=== PATIENT | female | born 1935 | race Caucasian/White ===

== ENCOUNTER 2017-02-24 19:08 | Inpatient (IN) | payer MEDICARE ==
--- NOTE | 2017-02-24 20:11 | ERPHSYRPT ---
- History of Present Illness Time Seen by Provider: 02/24/17 19:57 Source: patient, family (friend) Patient Subjective Stated Complaint: states a little before 1830 (when friend rec'd call) she stated having issues making a phone call. No other sick symptoms , AAO x 4 on assessment Triage Nursing Assessment: AAO x 4 on assessment, follows commands, just states she was confused and unsure how to make a phone call. Has hx of episode similar to this before but no diagnosis made at the time Physician History: CC: confusion Hx: 81 y/o patient lives at home. She had an episode of memory loss tonite around 5:30 PM. She could not remember her friend's phone numbers. She accidently called one who then checked cinthia her. Friend found her at 6:30PM with some slurring of speech, memory loss, mildly confused. She has hx of TIA. No blood thinners. No headache or chest pains today. No fall or injury. She had prior admission for memory loss acutely remotely. She is a pt of Dr Pascual Garcia. Timing/Duration: today Severity: moderate Allergies/Adverse Reactions: adhesive Allergy (Verified 08/22/14 18:11) meperidine HCl [From Demerol] Allergy (Verified 08/22/14 18:11) morphine Allergy (Verified 08/22/14 18:11) Penicillins Allergy (Verified 08/22/14 18:11) Sulfa (Sulfonamide Antibiotics) Allergy (Verified 08/22/14 18:11) Home Medications: Cholecalciferol (Vitamin D3) [Vitamin D] 2,000 unit PO DAILY 08/22/14 [ History] Famotidine/Calcium Carb/Mag [Pepcid Complete Tablet Chew] 1 each PO DAILY PRN PRN 08/22/14 [History] HydrALAzine HCL 25 MG TAB [Apresoline 25 MG TABLET] 25 mg PO BID 08/22/14 [History] Latanoprost [Xalatan] 2.5 ml OP HS 08/22/14 [History] Levothyroxine Sodium 25 Mcg [Synthroid 25 Mcg] 25 mcg PO DAILY 08/22/14 [ History] Meloxicam 7.5 mg [Mobic 7.5 MG] 7.5 mg PO DAILY 08/22/14 [History] Metformin HCl 500 mg [Glucophage 500 MG] 1,000 mg PO BID 08/22/14 [History ] Metoprolol Succinate 50 mg [Toprol Xl 50 MG] 50 mg PO BID 08/22/14 [ History] Quinapril HCl [Accupril] 40 mg PO DAILY 08/22/14 [History] Tolterodine Tartrate [Detrol LA] 4 mg PO BID 08/22/14 [History] Triamterene/Hydrochlorothiazid [Triamterene-Hctz 37.5-25 mg Tb] 1 each PO DAILY 08/22/14 [History] Hx Tetanus, Diphtheria Vaccination/Date Given: Yes Hx Influenza Vaccination/Date Given: Yes Hx Pneumococcal Vaccination/Date Given: Yes Immunizations Up to Date: Yes - Review of Systems Constitutional: No Fever, No Chills, No Malaise Eyes: No Vision Changes Respiratory: No Cough, No Dyspnea Cardiac: No Chest Pain Abdominal/Gastrointestinal: No Abdominal Pain, No Nausea, No Vomiting Musculoskeletal: No Back Pain Skin: No Rash Neurological: Speech Changes, Other (memory loss), No Dizziness, No Focal Weakness, No Headache, No Parasthesia All Other Systems: Reviewed and Negative - Past Medical History Pertinent Past Medical History: Yes Neurological History: Peripheral Neuropathy, TIA ENT History: Cataracts, Macular Degeneration Cardiac History: High Cholesterol, Hypertension, Other Respiratory History: COPD, Sleep Apnea Endocrine Medical History: Diabetes Type II, Hypothyroidism, Other Musculoskeletal History: Osteoarthritis GI Medical History: Diverticulitis History: Renal Disease, Other Psycho-Social History: No Pertinent History Female Reproductive Disorders: Breast Cancer Other Medical History: L KNEE ARTHROSCOPIC SURGERY, HEART CATH, BREAST CA. Sleep Apnea. TIA - Past Surgical History Past Surgical History: Yes Neuro Surgical History: No Pertinent History Cardiac: Cardiac Catheterization Respiratory: No Pertinent History Gastrointestinal: No Pertinent History - Social History Smoking Status: Former smoker How long have you smoked: 49 Exposure to second hand smoke: No Drug Use: none Patient Lives Alone: Yes (here with a friend) - Female History Hx Last Menstrual Period: post menopausal Hx Now: No - Nursing Vital Signs Nursing Vital Signs: Initial Vital Signs Temperature 97.7 F 02/24/17 19:25 Pulse Rate 82 02/24/17 19:25 Respiratory Rate 20 12/25/17 19:25 Blood Pressure 221/102 02/24/17 19:25 O2 Sat by Pulse Oximetry 92 L 02/24/17 19:25 Pain Scale Pain Intensity 0 - Physical Exam General Appearance: alert, other (keenly alert, answers all questions, conversant with her friend) Eye Exam: PERRL/EOMI Ears, Nose, Throat Exam: normal ENT inspection, moist mucous membranes, other ( tongue midline) Neck Exam: normal inspection Respiratory Exam: normal breath sounds, lungs clear Cardiovascular Exam: regular rate/rhythm Gastrointestinal/Abdomen Exam: soft, No tenderness, No distention Extremity Exam: normal inspection, normal range of motion, No pedal edema Neurologic Exam: alert, oriented x 3, cooperative, floor cashier II-XII nml as tested, sensation nml, other (no facial droop, no pronatory drift, knows her phone numbers, oriented X 3), No motor deficits Skin Exam: warm, dry, No rash SpO2 Interpretation: borderline oxygenation SpO2: 92 Oxygen Delivery: Room Air - Course Nursing assessment & vital signs reviewed: Yes EKG Interpreted by Me: RATE (77), Sinus Rhythm, NORMAL AXIS, NORMAL INTERVALS ( [id number]), Non-specific ST Changes - Radiology Exams cxr X-ray Interpretation: Interpreted by me (mild congestion, borderline heart size , no acute, calcified aorta) - CT Exams brain CT Interpretation: Negative, Tele-radiologist Report Ordered Tests: Active Orders 24 hr Category Date Time Status Remedial Teacher STAT Care 02/24/17 20:05 Active EKG-ER Only STAT Care 02/24/17 20:05 Active IV Insertion STAT Care 02/24/17 20:05 Active NPO (ED) STAT Care 02/24/17 20:05 Active Pulse Oximetry (ED) STAT Care 02/24/17 20:05 Active CHEST 1 VIEW (PORTABLE) Stat Exams 02/24/17 20:05 Taken HEAD WITHOUT CONTRAST [CT] Stat Exams 02/24/17 20:05 Taken BLOOD CULTURE Stat Lab 02/24/17 21:35 Ordered CBC W DIFF Stat Lab 02/24/17 20:51 Completed CMP Stat Lab 02/24/17 20:51 Completed CULTURE,URINE Stat Lab 02/24/17 21:06 Received Lactic Acid Stat Lab 02/24/17 20:44 Results Manual Differential NC Stat Lab 02/24/17 20:51 Completed PROTIME WITH INR Stat Lab 02/24/17 20:51 Completed PTT Stat Lab 02/24/17 20:51 Completed UA W/ MICROSCOPIC Stat Lab 02/24/17 21:06 Completed VENOUS BLOOD GAS Stat Lab 02/24/17 20:44 Completed Medication Summary Generic Name Dose Route Start Last Admin Trade Name Kennedy PRN Reason Stop Dose Admin Ceftriaxone Sodium/Dextrose 1 g in 50 mls @ 100 mls/hr 02/24/17 21:32 Rocephin 1 Gm-D5w 50 Ml Bag IV 02/24/17 22:01 STAT STA Sodium Chloride 1,000 mls @ 100 mls/hr 02/24/17 21:45 Sodium Chloride 0.9% 1000 Ml IV 03/26/17 21:44 .Q10H ISH Lab/Rad Data: Laboratory Result Diagrams 02/24/17 20:51 02/24/17 20:51 Laboratory Results 02/24/17 02/24/17 02/24/17 Range/Units 21:06 20:51 20:51 WBC (4.0-10.5) K/mm3 RBC (4.1-5.4) M/mm3 Hgb (12.0-16.0) gm/dl Hct (35-47) % MCV (78-100) fl MCH (26-32) pg MCHC (32-36) g/dl RDW (11.5-14.0) % Plt Count (150-450) K/mm3 MPV (6-9.5) fl INR 0.97 (0.8-3.0) APTT 31.1 (25.3-37.0) SECONDS VBG pH (7.32-7.42) VBG pCO2 at Pat Temp (42-55) mm/Hg VBG pO2 at Pat Temp (25-40) mm/Hg VBG HCO3 (22-28) meq/L VBG O2 Sat (Marlene) (95-100) VBG Base Excess (-2.0-2.0) VBG Hemoglobin VBG Carboxyhemoglobin (0.0-6.9) % T HGB POC Potassium (3.5-5.1) Sodium 139 (136-145) mEq/L Potassium 3.7 (3.5-5.1) mEq/L Chloride 103 (98-107) mEq/L Carbon Dioxide 25.9 (21-32) mEq/L Anion Gap 14.2 (5-15) MEQ/L BUN 48 H (9-20) mg/dL Creatinine 1.71 H (0.55-1.30) mg/dl Estimated GFR 30 ML/MIN Glucose 224 H (70-110) MG/DL Lactic Acid (0.4-2.0) Calcium 9.2 (8.5-10.1) mg/dL Total Bilirubin 0.70 (0.2-1.0) mg/dL AST 22 (15-37) U/L ALT 18 (12-78) U/L Alkaline Phosphatase 79 (46-116) U/L Serum Total Protein 6.8 (6.4-8.2) gm/dL Albumin 3.2 L (3.4-5.0) g/dL Ur Collection Type VOID Urine Color YELLOW (YELLOW) Urine Appearance SLIGHTLY CLOUDY (CLEAR) Urine pH 5.0 (5-6) Ur Specific [place] 1.015 (1.005-1.025) Urine Protein TRACE (Negative) Urine Ketones NEGATIVE (NEGATIVE) Urine Blood 50 (0-5) Александр/ul Urine Nitrite POSITIVE (NEGATIVE) Urine Bilirubin NEGATIVE (NEGATIVE) Urine Urobilinogen NORMAL (0-1) mg/dL Ur Leukocyte Esterase 1+ (NEGATIVE) Urine Microscopic RBC 2-5 (0-2) /HPF Urine Microscopic WBC 25-50 (0-5) /HPF Ur Epithelial Cells FEW (FEW) /HPF Urine Bacteria MANY (NEGATIVE) /HPF Urine Culture Reflexed YES (NO) Urine Glucose 100 (NEGATIVE) mg/dL Specimen Received 02/24/17210402/24/17 02/24/17 02/24/17 Range/Units 20:51 20:44 20:44 WBC 10.2 (4.0-10.5) K/mm3 RBC 4.23 (4.1-5.4) M/mm3 Hgb 12.0 (12.0-16.0) gm/dl Hct 37.8 (35-47) % MCV 89.4 (78-100) fl MCH 28.4 (26-32) pg MCHC 31.7 L (32-36) g/dl RDW 14.6 H (11.5-14.0) % Plt Count 218 (150-450) K/mm3 MPV 10.7 H (6-9.5) fl INR (0.8-3.0) APTT (25.3-37.0) SECONDS VBG pH 7.40 (7.32-7.42) VBG pCO2 at Pat Temp 43 (42-55) mm/Hg VBG pO2 at Pat Temp 52 H (25-40) mm/Hg VBG HCO3 26.6 (22-28) meq/L VBG O2 Sat (Marlene) 90.8 L (95-100) VBG Base Excess 1.5 (-2.0-2.0) VBG Hemoglobin 12.4 VBG Carboxyhemoglobin 1.7 (0.0-6.9) % T HGB POC Potassium 3.7 (3.5-5.1) Sodium (136-145) mEq/L Potassium (3.5-5.1) mEq/L Chloride (98-107) mEq/L Carbon Dioxide (21-32) mEq/L Anion Gap (5-15) MEQ/L BUN (9-20) mg/dL Creatinine (0.55-1.30) mg/dl Estimated GFR ML/MIN Glucose (70-110) MG/DL Lactic Acid 2.1 H (0.4-2.0) Calcium (8.5-10.1) mg/dL Total Bilirubin (0.2-1.0) mg/dL AST (15-37) U/L ALT (12-78) U/L Alkaline Phosphatase (46-116) U/L Serum Total Protein (6.4-8.2) gm/dL Albumin (3.4-5.0) g/dL Ur Collection Type Urine Color (YELLOW) Urine Appearance (CLEAR) Urine pH (5-6) Ur Specific [place] (1.005-1.025) Urine Protein (Negative) Urine Ketones (NEGATIVE) Urine Blood (0-5) Александр/ul Urine Nitrite (NEGATIVE) Urine Bilirubin (NEGATIVE) Urine Urobilinogen (0-1) mg/dL Ur Leukocyte Esterase (NEGATIVE) Urine Microscopic RBC (0-2) /HPF Urine Microscopic WBC (0-5) /HPF Ur Epithelial Cells (FEW) /HPF Urine Bacteria (NEGATIVE) /HPF Urine Culture Reflexed (NO) Urine Glucose (NEGATIVE) mg/dL Specimen Received - Progress Progress Note: 12/25/17 21:38 She has UTI. Allergic to PCN which caused hives but has taken keflex in the past without problems. She appears azotemic with elevated BUN and creat. She has UTI. No focal weakness so not a TPA candidate. CAlled Dr Brooklynn Garcia for osbervation. Discussed with : Mack Will see patient in: hospital (observation) Counseled pt/family regarding: lab results, diagnosis, need for follow-up, rad results - Departure Time of Disposition: 21:40 Departure Disposition: Observation Clinical Impression: TIA (transient ischemic attack), UTI (lower urinary tract infection), Dehydration Condition: Stable Critical Care Time: No Referrals: AQUILINO GARCIA [Primary Care Provider] -
[2017-02-24 20:49] LABS: Lactic Acid 2.1 (0.4-2.0)
[2017-02-24 20:52] LABS: VBG BASE EXCESS 1.5 (-2.0-2.0); VBG CARBOXYHEMOGLOBIN 1.7 % T HGB (0.0-6.9); VBG HCO3- 26.6 meq/L (22-28); VBG HEMOGLOBIN 12.4; VBG O2 SATURATION 90.8 (95-100); VBG POTASSIUM 3.7 (3.5-5.1); VBG pH 7.4 (7.32-7.42)
[2017-02-24 20:54] LABS: Granulocyte Absolute (ANC) 7.27 (1.4-6.9); Hematocrit 37.8 % (35-47); Mean Cell Volume 89.4 fl (78-100); Mean Corpuscular Hemoglobin 28.4 pg (26-32); Mean Corpuscular Hgb Concent. 31.7 g/dl (32-36); Mean Platelet Volume 10.7 fl (6-9.5); Platelet Count 218 K/mm3 (150-450); Red Blood Count 4.23 M/mm3 (4.1-5.4); Red Cell Distribution Width 14.6 % (11.5-14.0); White Blood Count 10.2 K/mm3 (4.0-10.5)
[2017-02-24 21:16] LABS: INR 0.97 (0.8-3.0)
[2017-02-24 21:19] LABS: PTT 31.1 SECONDS (25.3-37.0)
[2017-02-24 21:24] LABS: ALBUMIN 3.2 g/dL (3.4-5.0); ANION GAP 14.2 MEQ/L (5-15); BILIRUBIN,TOTAL 0.7 mg/dL (0.2-1.0); Calcium 9.2 mg/dL (8.5-10.1); Carbon Dioxide 25.9 mEq/L (21-32); Creatinine 1 1.71 mg/dl (0.55-1.30); Potassium 3.7 mEq/L (3.5-5.1); Total Protein 6.8 gm/dL (6.4-8.2)
[2017-02-24 21:24] LABS: Appearance SLIGHTLY CLOUDY (CLEAR); Bilirubin NEGATIVE (NEGATIVE); Blood 50 Ery/ul (0-5); Glucose 100 mg/dL (NEGATIVE); Ketones NEGATIVE (NEGATIVE); Leukocyte Esterase 1+ (NEGATIVE); Nitrite POSITIVE (NEGATIVE); Protein,Urine Dip TRACE (Negative); Specific Gravity 1.015 (1.005-1.025); Urobilinogen NORMAL mg/dL (0-1)
[2017-02-24 21:25] LABS: Bacteria MANY /HPF (NEGATIVE); Epithelial Cells FEW /HPF (FEW); WBC 25-50 /HPF (0-5)
[2017-02-24] MEDS ORDERED: ROCEPHIN 1 Gm-D5w 50 ml Bag** 1 G/50 ML IVPB IV STA (21:32)
[2017-02-24] MEDS ORDERED: ROCEPHIN 1 Gm-D5w 50 ml Bag** 1 G/50 ML IVPB IV ONE (21:44)
[2017-02-24] MEDS ORDERED: Sodium Chloride 0.9% 1000 ML 1,000 ML IV SCH (21:45)
[2017-02-24] MEDS ORDERED: Sodium Chloride 0.9% 1000 ML 1,000 ML ONE (21:51)
[2017-02-24 22:00] LABS: ATYPICAL LYMPHS 2 %; BAND 4 % (0.0-2.0); Lymphocytes 16 % (24-44); Monocyte 2 % (0.0-12.0); Neutrophils 76 % (36.0-66.0); Platelet Estimate NORMAL (NORMAL); Total Cells Counted 100
[2017-02-24] MEDS ORDERED: NovoLOG Insulin SQ PRN (22:28)
[2017-02-25] MEDS ORDERED: Ditropan XL 5 MG PO SCH (00:30)
[2017-02-25] MEDS ORDERED: Apresoline 25 MG TABLET PO ONE (00:30)
[2017-02-25] MEDS: Glucophage 500 MG PO SCH ×3 (00:33→18:12)
[2017-02-25] MEDS: Xalatan OP SCH ×2 (01:23→21:59)
[2017-02-25 04:48] LABS: ANION GAP 12.5 MEQ/L (5-15); Calcium 8.6 mg/dL (8.5-10.1); Carbon Dioxide 26.2 mEq/L (21-32); Creatinine 1 1.4 mg/dl (0.55-1.30); Potassium 3.4 mEq/L (3.5-5.1)
[2017-02-25] MEDS: TYLENOL 325 MG PO PRN ×2 (07:59→20:08)
--- NOTE | 2017-02-25 08:16 | PCM.HP ---
History of Present Illness - Chief Complaint Chief Complaint: UTI and confusion Date: 02/25/17 History of Present Illness: is a 81 year old female. who lives home alone and yesterday got confused she was having trouble remembering a phone number and called the wrong friend. They came to check on her and she was confused they felt and had her come to the ED. She admits she was having some difficulty with recalling things yesterday and was out of sorts but this has improved today and no symptoms. She had no focal deficits during this time. She thinks she took her am meds. She does have constant frequent urination chronically but doesn't recall having any abdominal pain nausea vomiting or diarrhea. She denies any headache. - Review of Systems Constitutional: Fatigue, Weakness, No Fever, No Chills Eyes: No Symptoms Ears, Nose, & Throat: No Symptoms Respiratory: No Cough, No Short Of Breath Cardiac: No Chest Pain, No Edema, No Syncope Abdominal/Gastrointestinal: No Abdominal Pain, No Nausea, No Vomiting, No Diarrhea Genitourinary Symptoms: Frequency, Urgency, No Dysuria Musculoskeletal: No Back Pain, No Neck Pain Skin: No Rash Neurological: No Dizziness, No Focal Weakness, No Gait Changes, No Headache, No Sensory Changes, No Speech Changes Psychological: No Symptoms Endocrine: No Symptoms Hematologic/Lymphatic: No Symptoms Immunological/Allergic: No Symptoms Medications & Allergies Home Medications: Home Medication List Cholecalciferol (Vitamin D3) [Vitamin D] 2,000 unit PO DAILY 08/22/14 [ History Confirmed 02/24/17] Famotidine/Calcium Carb/Mag [Pepcid Complete Tablet Chew] 1 each PO DAILY PRN PRN 08/22/14 [History Confirmed 02/24/17] HydrALAzine HCL 25 MG TAB [Apresoline 25 MG TABLET] 25 mg PO BID 08/22/14 [History Confirmed 02/24/17] Latanoprost [Xalatan] 2.5 ml OP HS 08/22/14 [History Confirmed 02/24/17] Levothyroxine Sodium 25 Mcg [Synthroid 25 Mcg] 25 mcg PO DAILY 08/22/14 [ History Confirmed 02/24/17] Meloxicam 7.5 mg [Mobic 7.5 MG] 7.5 mg PO BID 08/22/14 [History Confirmed 02/24/17] Metformin HCl 500 mg [Glucophage 500 MG] 1,000 mg PO BID 08/22/14 [ History Confirmed 02/24/17] Metoprolol Succinate 50 mg [Toprol Xl 50 MG] 100 mg PO DAILY 08/22/14 [ History Confirmed 02/25/17] Quinapril HCl [Accupril] 40 mg PO DAILY 08/22/14 [History Confirmed 02/25/17] Tolterodine Tartrate [Detrol LA] 4 mg PO BID 08/22/14 [History Confirmed ] Triamterene/Hydrochlorothiazid [Triamterene-Hctz 37.5-25 mg Tb] 1 each PO DAILY 08/22/14 [History Confirmed 02/24/17] Atorvastatin Calcium [Lipitor 20MG Tablet] 20 mg PO DAILY #30 tab 08/24/14 [Rx Confirmed 02/24/17] Pioglitazone HCl 15 mg PO DAILY 02/24/17 [History Confirmed 02/24/17] Allergies/Adverse Reactions: Allergies Allergy/AdvReac Type Severity Reaction Status Date / Time adhesive Allergy Verified 08/22/14 18:11 meperidine HCl [From Demerol] Allergy Verified 08/22/14 18:11 morphine Allergy Verified 08/22/14 18:11 Penicillins Allergy Verified 08/22/14 18:11 Sulfa (Sulfonamide Allergy Verified 08/22/14 18:11 Antibiotics) - Past Medical History Past Medical History: Yes Neurological History: Peripheral Neuropathy, TIA ENT History: Cataracts, Macular Degeneration Cardiac History: High Cholesterol, Hypertension, Other Respiratory History: COPD, Sleep Apnea Endocrine Medical History: Diabetes Type II, Hypothyroidism, Other Musculoskelatal History: Osteoarthritis GI Medical History: Diverticulitis History: Renal Disease, Other Pyscho-Social History: No Pertinent History Reproductive Disorders: Breast Cancer Comment: L KNEE ARTHROSCOPIC SURGERY, HEART CATH, BREAST CA. Sleep Apnea. TIA. Nodules on thyroid - Female History Hx Last Menstrual Period: post menopausal Are you now?: No - Past Surgical History Past Surgical History: Yes Neuro Surgical History: No Pertinent History Cardiac History: Cardiac Catheterization Respiratory Surgery: No Pertinent History GI Surgical History: No Pertinent History Genitourinary Surgical Hx: No Pertinent History Musculskeletal Surgical Hx: Orthopedic Surgery Female Surgical History: Tubal Ligation - Social History Smoking Status: Former smoker How long have you smoked: 49 Exposure to second hand smoke: No Alcohol: None Drug Use: none - Physical Exam Vital Signs: Vital Signs - 24 hr Temp Pulse Resp BP Pulse Ox 02/25/17 07:36 98.4 F 73 16 179/78 96 02/25/17 04:00 98.2 F 74 15 151/66 96 02/24/17 22:50 98.6 F 74 20 196/81 93 L 02/24/17 21:57 80 20 152/87 98 02/24/17 21:40 92 L 02/24/17 20:15 78 20 165/73 96 02/24/17 20:14 96 02/24/17 19:25 97.7 F 82 20 221/102 92 L General Appearance: no apparent distress, alert, obese Neurologic Exam: alert, oriented x 3, cooperative, normal mood/affect, nml cerebellar function, sensation nml, No motor deficits Eye Exam: PERRL/EOMI, eyes nml inspection Ears, Nose, Throat Exam: normal ENT inspection, TMs normal, pharynx normal, moist mucous membranes Neck Exam: normal inspection, non-tender, supple, full range of motion Respiratory Exam: normal breath sounds, lungs clear, No respiratory distress Cardiovascular Exam: regular rate/rhythm, normal heart sounds, normal peripheral pulses Gastrointestinal/Abdomen Exam: soft, normal bowel sounds, No tenderness, No mass Back Exam: normal inspection, normal range of motion, No CVA tenderness, No vertebral tenderness Extremity Exam: normal inspection, normal range of motion, pelvis stable Skin Exam: normal color, warm, dry, No rash Lymphatic Exam: No adenopathy Results - Labs Lab/Micro Results: Lab Results-Last 24 Hours 02/25/17 02/25/17 Range/Units 04:05 04:20 Sodium 140 (136-145) mEq/L Potassium 3.4 L (3.5-5.1) mEq/L Chloride 105 (98-107) mEq/L Carbon Dioxide 26.2 (21-32) mEq/L Anion Gap 12.5 (5-15) MEQ/L BUN 41 H (9-20) mg/dL Creatinine 1.40 H (0.55-1.30) mg/dl Estimated GFR 38 ML/MIN Glucose 157 H (70-110) MG/DL Lactic Acid 1.7 (0.4-2.0) Calcium 8.6 (8.5-10.1) mg/dL - Other Procedures and Tests Respiratory Therapy 02/24/17 23:58 RT Screen per Nursing Assess Assessment/Plan (1) UTI (lower urinary tract infection) Current Visit: Yes Status: Acute Assessment & Plan: continue iv hydration TALIB improving this am with this will hold the nsaid but given her elevated bp and continued improvement of renal function will continue her helena inhibitor continue rocephin pending culture her symptoms cleared with rehydration and treatment of infection she had previous negative evaluation for TIA including carotid u/s and echo and this appears more consistent with toxic metabolic encephalopathy given the infection and azotemia. Code(s): N39.0 - URINARY TRACT INFECTION, SITE NOT SPECIFIED (2) Acute kidney injury Current Visit: Yes Status: Acute Code(s): N17.9 - ACUTE KIDNEY FAILURE, UNSPECIFIED (3) Metabolic encephalopathy Current Visit: Yes Status: Acute Code(s): G93.41 - METABOLIC ENCEPHALOPATHY (4) Type 2 diabetes mellitus Current Visit: Yes Status: Acute (5) Essential hypertension Current Visit: Yes Status: Acute Code(s): I10 - ESSENTIAL (PRIMARY) HYPERTENSION (6) Dehydration Current Visit: Yes Status: Acute Code(s): E86.0 - DEHYDRATION
--- NOTE | 2017-02-25 08:43 | XRAY ---
Indication: Confusion. Comparison: August 22, 2014. Portable chest again demonstrates chronic lung markings and calcified granulomas without focal infiltrate, consolidation, or large effusion. Heart is not enlarged for AP portable technique. Descending aorta remains mildly tortuous. Bony thorax intact again with mild osteopenia and degenerative changes. Impression: Nonacute chest with chronic features.
--- NOTE | 2017-02-25 08:45 | XRAY ---
Indication: Confusion, memory loss, and slurred speech. Multiple contiguous axial images obtained through the head without contrast. Comparison: August 22, 2014. Again age-appropriate global atrophy and mild periventricular degenerative micro-ischemia bilaterally. New finding for remote appearing lacunar infarcts in the left caudate head and left external capsule. No acute intracranial hemorrhage, abnormal extra-axial fluid collection, or mass effect. Fourth ventricle is midline without hydrocephalus. Bony calvarium intact. Visualized paranasal sinuses and mastoid air cells are pneumatized and clear. 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 Comment: Preliminary interpretation was made by [facility]. No discrepancy. CT DI 68.32
[2017-02-25] MEDS: Sodium Chloride 0.9% 1000 ML 1,000 ML IV SCH ×2 (08:50→18:52)
[2017-02-25] MEDS: Apresoline 25 MG TABLET PO SCH ×3 (08:54→21:58)
[2017-02-25] MEDS: Klor Con 10 MEQ PO SCH ×2 (08:54→21:58)
[2017-02-25] MEDS: ECOTRIN 81 MG PO SCH (08:54)
[2017-02-25] MEDS: ENOXAPARIN SODIUM SQ SCH (08:54)
[2017-02-25] MEDS: Toprol Xl 100 MG PO SCH (09:09)
[2017-02-25] MEDS: SYNTHROID 25 MCG PO SCH (09:09)
[2017-02-25] MEDS: Accupril 10MG Tablet PO SCH (09:10)
[2017-02-25] MEDS: Maxzide-25MG Tablet PO SCH (09:10)
[2017-02-25] MEDS ORDERED: Toprol Xl 50 MG PO SCH (10:00)
[2017-02-25] MEDS ORDERED: Apresoline 25 MG TABLET PO SCH (10:00)
[2017-02-25] MEDS ORDERED: QUINAPRIL HCL 40 MG PO SCH (10:00)
[2017-02-25] MEDS ORDERED: NON-FORMULARY ITEM (Atorvastatin Calcium 20 MG) PO SCH (10:00)
[2017-02-25] MEDS ORDERED: Maxzide 25MG PO SCH (10:00)
[2017-02-25] MEDS: Zofran 4 MG/2 ML VIAL IV PRN (11:08)
[2017-02-25] MEDS: ROCEPHIN 1 Gm-D5w 50 ml Bag** 1 G/50 ML IVPB IV SCH (21:58)
[2017-02-25] MEDS: ZOCOR 20MG PO SCH (21:58)
[2017-02-26 05:48] LABS: Hematocrit 34.9 % (35-47); Hemoglobin 10.9 gm/dl (12.0-16.0); Mean Cell Volume 90.2 fl (78-100); Mean Corpuscular Hgb Concent. 31.2 g/dl (32-36); Platelet Count 214 K/mm3 (150-450); Red Blood Count 3.87 M/mm3 (4.1-5.4); Red Cell Distribution Width 14.7 % (11.5-14.0); White Blood Count 8.3 K/mm3 (4.0-10.5)
[2017-02-26 06:05] LABS: Mean Corpuscular Hemoglobin 28.1 pg (26-32)
[2017-02-26 06:10] LABS: ANION GAP 8.9 MEQ/L (5-15); Calcium 8.5 mg/dL (8.5-10.1); Carbon Dioxide 28.1 mEq/L (21-32); Creatinine 1 1.15 mg/dl (0.55-1.30); Potassium 3.5 mEq/L (3.5-5.1)
[2017-02-26] MEDS: TYLENOL 325 MG PO PRN ×2 (06:45→13:29)
[2017-02-26] MEDS: Zofran 4 MG/2 ML VIAL IV PRN ×2 (06:45→11:52)
[2017-02-26] MEDS: Sodium Chloride 0.9% 1000 ML 1,000 ML IV SCH (08:12)
--- NOTE | 2017-02-26 08:18 | PCM.NOTE ---
Date and Time: 02/26/17813 Subjective Assessment: she became febrile and confused overnight she has no slurred speech or focal deficits with it just was not able to follow simple commands at times and not oriented. She is now complaining of a right sided headache. She feels nauseated as well. No chest pain or shortness of breath. Objective Exam General Appearance: no apparent distress Neurologic Exam: alert, cooperative, confusion, other (slow cautious gait), No oriented x 3, No motor weakness, No facial droop, No slurred speech, No abnormal cerebellar tests, No abnormal cereal chemist II-XII Skin Exam: warm, dry Eye Exam: pale conjunctivae Ears, Nose, Throat Exam: moist mucous membranes Neck Exam: non-tender, supple, No meningismus Lymphatic Exam: No adenopathy Respiratory Exam: lungs clear Cardiovascular Exam: normal heart sounds Gastrointestinal/Abdomen Exam: soft, normal bowel sounds, No tenderness, No distention Extremity Exam: normal inspection, No pedal edema, No swelling OBJECTIVE DATA Vital Signs: Vital Signs - 24 hr Temp Pulse Resp BP Pulse Ox 02/26/17 07:31 100.4 F 78 20 176/74 90 L 02/26/17 04:15 98.7 F 78 22 176/72 95 02/26/17 00:00 100.8 F 89 20 146/65 93 L 02/25/17 20:37 98.2 F 91 H 18 162/70 94 L 02/25/17 17:47 98.2 F 77 18 172/74 94 L 02/25/17 14:41 156/68 02/25/17 11:17 97.8 F 78 18 160/68 94 L Pain Assessment - Last Documented Pain Intensity 10 Pain Scale Used 0-10 Pain Scale Intake and Output: Intake & Output 02/23/17 02/24/17 02/25/17 02/26/17 11:59 11:59 11:59 11:59 Intake Total 1399 3291 Output Total 600 2350 Balance 799 941 Weight 87.997 kg Lab Results: Accuchecks Date 02/26/17 Date 02/25/17 Date 02/25/17 Time 07:30 Time 21:30 Time 21:30 Accucheck Value: 151 Accucheck Value: 152 Accucheck Value: 152 Accucheck Value: 132 Accucheck Value: 142 Lab Results-Last 24 Hours 02/25/17 02/26/17 02/26/17 Range/Units Unknown 05:20 05:20 WBC 8.3 (4.0-10.5) K/mm3 RBC 3.87 L (4.1-5.4) M/mm3 Hgb 10.9 L (12.0-16.0) gm/dl Hct 34.9 L (35-47) % MCV 90.2 (78-100) fl MCH 28.1 (26-32) pg MCHC 31.2 L (32-36) g/dl RDW 14.7 H (11.5-14.0) % Plt Count 214 (150-450) K/mm3 MPV 11.0 H (6-9.5) fl Sodium 140 (136-145) mEq/L Potassium 3.5 (3.5-5.1) mEq/L Chloride 106 (98-107) mEq/L Carbon Dioxide 28.1 (21-32) mEq/L Anion Gap 8.9 (5-15) MEQ/L BUN 25 H (9-20) mg/dL Creatinine 1.15 (0.55-1.30) mg/dl Estimated GFR 48 ML/MIN Glucose 152 H (70-110) MG/DL Hemoglobin A1c 7.0 H (4.5-6.2) Calcium 8.5 (8.5-10.1) mg/dL Assessment/Plan (1) UTI (lower urinary tract infection) Current Visit: Yes Status: Acute Assessment & Plan: she started having a fever overnight and became more confused again and still confused this am she has a right sided headache but no meningismus and no focal neurological deficits admission head CT showed remote lacunar infarcts UTI sensitive to Rocephin will continue now treat fever monitor closely consider brain mri. with increased fever and confusion will need inpatient stay Code(s): N39.0 - URINARY TRACT INFECTION, SITE NOT SPECIFIED (2) Acute kidney injury Current Visit: Yes Status: Acute Code(s): N17.9 - ACUTE KIDNEY FAILURE, UNSPECIFIED (3) Metabolic encephalopathy Current Visit: Yes Status: Acute Code(s): G93.41 - METABOLIC ENCEPHALOPATHY (4) Type 2 diabetes mellitus Current Visit: Yes Status: Acute (5) Essential hypertension Current Visit: Yes Status: Acute Code(s): I10 - ESSENTIAL (PRIMARY) HYPERTENSION (6) Dehydration Current Visit: Yes Status: Acute Code(s): E86.0 - DEHYDRATION
[2017-02-26] MEDS: Glucophage 500 MG PO SCH ×2 (08:26→17:10)
[2017-02-26] MEDS ORDERED: Sodium Chloride 0.9% 10 ML FLUSH Syringe IV PRN (08:29)
[2017-02-26] MEDS: Maxzide-25MG Tablet PO SCH (10:15)
[2017-02-26] MEDS: Apresoline 25 MG TABLET PO SCH ×3 (10:15→21:37)
[2017-02-26] MEDS: Accupril 10MG Tablet PO SCH (10:15)
[2017-02-26] MEDS: ENOXAPARIN SODIUM SQ SCH (10:15)
[2017-02-26] MEDS: ECOTRIN 81 MG PO SCH (10:16)
[2017-02-26] MEDS: Klor Con 10 MEQ PO SCH ×2 (10:16→21:37)
[2017-02-26] MEDS: SYNTHROID 25 MCG PO SCH (10:16)
[2017-02-26] MEDS: Toprol Xl 100 MG PO SCH (10:16)
[2017-02-26] MEDS: Sodium Chloride 0.9% 10 ML FLUSH Syringe IV SCH ×2 (11:53→21:39)
[2017-02-26] MEDS: Phenergan 25 MG INJ IV PRN (14:58)
[2017-02-26] MEDS: ZOCOR 20MG PO SCH (21:36)
[2017-02-26] MEDS: ROCEPHIN 1 Gm-D5w 50 ml Bag** 1 G/50 ML IVPB IV SCH (21:38)
[2017-02-26] MEDS: Xalatan OP SCH (21:39)
[2017-02-27] MEDS: Phenergan 25 MG INJ IV PRN (01:28)
[2017-02-27 06:03] LABS: Hematocrit 38.2 % (35-47); Mean Cell Volume 89.5 fl (78-100); Mean Corpuscular Hemoglobin 28.1 pg (26-32); Mean Corpuscular Hgb Concent. 31.4 g/dl (32-36); Mean Platelet Volume 11.1 fl (6-9.5); Platelet Count 236 K/mm3 (150-450); Red Blood Count 4.27 M/mm3 (4.1-5.4); Red Cell Distribution Width 14.9 % (11.5-14.0); White Blood Count 11.5 K/mm3 (4.0-10.5)
[2017-02-27 06:59] LABS: ANION GAP 11.8 MEQ/L (5-15); BILIRUBIN,TOTAL 1.2 mg/dL (0.2-1.0); Calcium 8.8 mg/dL (8.5-10.1); Carbon Dioxide 28.1 mEq/L (21-32); Creatinine 1 1.12 mg/dl (0.55-1.30); Potassium 3.9 mEq/L (3.5-5.1); Total Protein 6.8 gm/dL (6.4-8.2)
[2017-02-27] MEDS: Glucophage 500 MG PO SCH ×3 (07:50→19:40)
[2017-02-27] MEDS: Sodium Chloride 0.9% 10 ML FLUSH Syringe IV SCH ×2 (07:51→13:19)
[2017-02-27] MEDS: TYLENOL 325 MG PO PRN (07:53)
--- NOTE | 2017-02-27 09:02 | PCM.NOTE ---
Date and Time: 02/27/17 0856 Subjective Assessment: headache resolved slept better last night more alert this am still with some confusion but she feels better she states she knows the president now but not the year. Knows where she is and why she is here. Recalls us wanting to do the MRI yesterday and her refusing it. She has some mild nausea and still some confusion but is otherwise feeling better she says. No appetitie. Denies any weakness, paresthesia, or double vision. Objective Exam General Appearance: no apparent distress, alert, obese Neurologic Exam: alert, cooperative, normal mood/affect, nml cerebellar function , sensation nml, No motor deficits Skin Exam: normal color, warm, dry Eye Exam: PERRL, EOMI, eyes nml inspection Ears, Nose, Throat Exam: normal ENT inspection, pharynx normal, moist mucous membranes Neck Exam: normal inspection, non-tender, supple, full range of motion Respiratory Exam: normal breath sounds, lungs clear, No respiratory distress Cardiovascular Exam: irregular, No edema Gastrointestinal/Abdomen Exam: soft, No tenderness, No mass Extremity Exam: normal inspection, normal range of motion Back Exam: normal inspection, normal range of motion, No CVA tenderness, No vertebral tenderness Pelvic Exam: deferred Rectal Exam: deferred OBJECTIVE DATA Vital Signs: Vital Signs - 24 hr Temp Pulse Resp BP Pulse Ox 02/27/17 07:23 98 F 59 L 20 116/59 96 02/27/17 04:00 98.6 F 102 H 22 160/77 96 02/27/17 00:10 99.7 F 89 20 146/66 97 02/26/17 20:00 98.4 F 78 22 144/65 99 02/26/17 18:50 95 H 160/74 02/26/17 15:17 98.1 F 77 20 196/87 91 L 02/26/17 11:02 98.4 F 79 20 142/63 93 L Oxygen-Last 24 hours O2 Percentage 2 Liters = 28% O2 Percentage 2 Liters = 28% O2 Percentage 2 Liters = 28% O2 Percentage 2 Liters = 28% Pain Assessment - Last Documented Pain Intensity 5 Pain Scale Used 0-10 Pain Scale Intake and Output: Intake & Output 02/24/17 02/25/17 02/26/17 02/27/17 11:59 11:59 11:59 11:59 Intake Total 120 790 Output Total 1100 2380 Balance -980 -1850 Lab Results: Accuchecks Date 02/27/17 Date 02/26/17 Date 02/26/17 Date 02/26/17 Time 07:30 Time 22:00 Time 16:30 Time 11:30 Accucheck Value: 128 Accucheck Value: 144 Accucheck Value: 148 Accucheck Value: 158 Lab Results-Last 24 Hours 02/27/17 02/27/17 Range/Units 05:07 05:07 WBC 11.5 H (4.0-10.5) K/mm3 RBC 4.27 (4.1-5.4) M/mm3 Hgb 12.0 (12.0-16.0) gm/dl Hct 38.2 (35-47) % MCV 89.5 (78-100) fl MCH 28.1 (26-32) pg MCHC 31.4 L (32-36) g/dl RDW 14.9 H (11.5-14.0) % Plt Count 236 (150-450) K/mm3 MPV 11.1 H (6-9.5) fl Sodium 140 (136-145) mEq/L Potassium 3.9 (3.5-5.1) mEq/L Chloride 104 (98-107) mEq/L Carbon Dioxide 28.1 (21-32) mEq/L Anion Gap 11.8 (5-15) MEQ/L BUN 18 (9-20) mg/dL Creatinine 1.12 (0.55-1.30) mg/dl Estimated GFR 50 ML/MIN Glucose 147 H (70-110) MG/DL Calcium 8.8 (8.5-10.1) mg/dL Total Bilirubin 1.20 H (0.2-1.0) mg/dL AST 21 (15-37) U/L ALT 15 (12-78) U/L Alkaline Phosphatase 61 (46-116) U/L Serum Total Protein 6.8 (6.4-8.2) gm/dL Albumin 3.0 L (3.4-5.0) g/dL Radiology Exams: Radiology Procedures Category Date Time Status ECHO W/2D AND DOPPLER [US] Routine Exams 02/27/17 Ordered Assessment/Plan (1) Atrial fibrillation Current Visit: Yes Status: Acute Assessment & Plan: new onset started at 02:00 this am check echo start therapeutic anticoagulation with eliquis 5mg po bid continue metoprolol WE attempted to do MRI yesterday but patient has a severe fear of small spaces and refused to do it. SHe then became nauseated and vomited and we felt sedation would be too risky for the MRI with her current mental status and her recent vomiting. This am her mental status is much improved but she still does not want to have the MRI of the brain. Likely confusion still from metabolic encephalopathy due to infection as it is exacerbated by her fever. Continue to monitor she no longer has headache and has not had any stiff neck to suggest meningitis. BP much improved this am continue to monitor Code(s): I48.91 - UNSPECIFIED ATRIAL FIBRILLATION (2) UTI (lower urinary tract infection) Current Visit: Yes Status: Acute Assessment & Plan: still nauseated not eating or drinking well start back ivf at 50 mL/h monitor hydation Code(s): N39.0 - URINARY TRACT INFECTION, SITE NOT SPECIFIED (3) Acute kidney injury Current Visit: Yes Status: Acute Code(s): N17.9 - ACUTE KIDNEY FAILURE, UNSPECIFIED (4) Metabolic encephalopathy Current Visit: Yes Status: Acute Code(s): G93.41 - METABOLIC ENCEPHALOPATHY (5) Type 2 diabetes mellitus Current Visit: Yes Status: Acute (6) Essential hypertension Current Visit: Yes Status: Acute Code(s): I10 - ESSENTIAL (PRIMARY) HYPERTENSION (7) Dehydration Current Visit: Yes Status: Acute Code(s): E86.0 - DEHYDRATION
[2017-02-27] MEDS: SYNTHROID 25 MCG PO SCH (09:35)
[2017-02-27] MEDS: Maxzide-25MG Tablet PO SCH (09:35)
[2017-02-27] MEDS: Toprol Xl 100 MG PO SCH (09:36)
[2017-02-27] MEDS: Klor Con 10 MEQ PO SCH ×2 (09:36→21:09)
[2017-02-27] MEDS: ELIQUIS PO SCH ×2 (09:36→21:09)
[2017-02-27] MEDS: Apresoline 25 MG TABLET PO SCH ×3 (09:36→21:09)
[2017-02-27] MEDS: Accupril 10MG Tablet PO SCH (09:36)
[2017-02-27] MEDS: ECOTRIN 81 MG PO SCH (09:36)
[2017-02-27] MEDS: Sodium Chloride 0.9% 1000 ML 1,000 ML IV SCH (09:39)
[2017-02-27] MEDS: ZOCOR 20MG PO SCH (21:09)
[2017-02-27] MEDS: ROCEPHIN 1 Gm-D5w 50 ml Bag** 1 G/50 ML IVPB IV SCH (21:09)
[2017-02-27] MEDS: Pepcid 20 MG PO SCH (21:09)
[2017-02-27] MEDS: Xalatan OP SCH (21:10)
[2017-02-28] MEDS: Sodium Chloride 0.9% 1000 ML 1,000 ML IV SCH (05:16)
[2017-02-28 06:12] LABS: BASOPHIL % 0.2 % (0.0-0.4); Basophil (Absolute #) 0.02 (0-0.4); Eosinophil % 0.8 % (0.00-5.0); Granulocyte Absolute (ANC) 8.32 (1.4-6.9); Granulocytes % 70.6 % (36.0-66.0); Lymphocyte (Absolute #) 2.21 (1.0-4.6); Lymphocytes % 18.7 % (24.0-44.0); Mean Corpuscular Hemoglobin 28.4 pg (26-32); Mean Corpuscular Hgb Concent. 31.6 g/dl (32-36); Mean Platelet Volume 11.1 fl (6-9.5); Monocyte (Absolute #) 1.14 (0.0-1.3); Monocytes % 9.7 % (0.0-12.0); Platelet Count 223 K/mm3 (150-450); Red Blood Count 4.22 M/mm3 (4.1-5.4); Red Cell Distribution Width 14.7 % (11.5-14.0); White Blood Count 11.8 K/mm3 (4.0-10.5)
[2017-02-28 07:17] LABS: BILIRUBIN,TOTAL 1.6 mg/dL (0.2-1.0); Calcium 8.7 mg/dL (8.5-10.1); Carbon Dioxide 26.9 mEq/L (21-32); Creatinine 1 1.22 mg/dl (0.55-1.30); Potassium 3.9 mEq/L (3.5-5.1); Total Protein 6.7 gm/dL (6.4-8.2)
--- NOTE | 2017-02-28 08:15 | PCM.NOTE ---
Date and Time: 02/28/17814 Subjective Assessment: She is doing much better but she is still having some confusion. She is not able to operate her phone properly. She is able to read but says the words get jumbled at the ends sometimes. She no longer has the headache. no nausea. She is still very weak. She still has difficulty recalling the year. 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 She is able to read the menu out loud without difficulty. she gets confused on the digital part of her operating her phone and finding numbers but is able to dial appropriately. She knows it is late January, remembers the events leading up to the hospitalization, knows adryan is president but is unable to recall the year.), normal mood/affect, nml cerebellar function, sensation nml, confusion, other, No motor deficits, No slurred speech Skin Exam: normal color, warm, dry Eye Exam: PERRL, EOMI, eyes nml inspection Ears, Nose, Throat Exam: normal ENT inspection, pharynx normal, moist mucous membranes Neck Exam: normal inspection, non-tender, supple, full range of motion Respiratory Exam: normal breath sounds, lungs clear, No respiratory distress Cardiovascular Exam: normal heart sounds, irregular Gastrointestinal/Abdomen Exam: soft, No tenderness, No mass Extremity Exam: normal inspection, normal range of motion Back Exam: normal inspection, normal range of motion, No CVA tenderness, No vertebral tenderness Pelvic Exam: deferred Rectal Exam: deferred OBJECTIVE DATA Vital Signs: Vital Signs - 24 hr Temp Pulse Resp BP Pulse Ox 02/28/17 07:28 98.6 F 87 20 120/76 97 02/28/17 04:03 99.6 F 106 H 22 127/68 96 02/28/17 00:00 99.2 F 86 24 142/80 94 L 02/27/17 20:23 99.1 F 103 H 22 122/70 91 L 02/27/17 16:17 98.2 F 64 18 120/74 97 02/27/17 11:23 98.1 F 62 20 122/60 95 Oxygen-Last 24 hours O2 Percentage 2 Liters = 28% O2 Percentage 2 Liters = 28% Pain Assessment - Last Documented Pain Intensity 0 [facility] Intake and Output: Intake & Output 02/25/17 02/26/17 02/27/17 02/28/17 11:59 11:59 11:59 11:59 Intake Total 4696 303 8410 Output Total 1500 3040 1600 Balance -264 -2250 851 Lab Results: Accuchecks Date 02/27/17 Date 02/27/17 Date 02/27/17 Time 21:30 Time 16:30 Time 11:30 Accucheck Value: 173 Accucheck Value: 202 Accucheck Value: 137 Lab Results-Last 24 Hours 02/28/17 02/28/17 02/28/17 Range/Units 05:00 05:00 05:00 WBC 11.8 H (4.0-10.5) K/mm3 RBC 4.22 (4.1-5.4) M/mm3 Hgb 12.0 (12.0-16.0) gm/dl Hct 38.0 (35-47) % MCV 90.0 (78-100) fl MCH 28.4 (26-32) pg MCHC 31.6 L (32-36) g/dl RDW 14.7 H (11.5-14.0) % Plt Count 223 (150-450) K/mm3 MPV 11.1 H (6-9.5) fl Gran % 70.6 H (36.0-66.0) % Lymphocytes % 18.7 L (24.0-44.0) % Monocytes % 9.7 (0.0-12.0) % Eosinophils % 0.8 (0.00-5.0) % Basophils % 0.2 (0.0-0.4) % Basophils # 0.02 (0-0.4) Sodium 138 (136-145) mEq/L Potassium 3.9 (3.5-5.1) mEq/L Chloride 103 (98-107) mEq/L Carbon Dioxide 26.9 (21-32) mEq/L Anion Gap 12.0 (5-15) MEQ/L BUN 18 (9-20) mg/dL Creatinine 1.22 (0.55-1.30) mg/dl Estimated GFR 45 ML/MIN Glucose 155 H (70-110) MG/DL Calcium 8.7 (8.5-10.1) mg/dL Magnesium 1.6 L (1.8-2.4) mg/dL Total Bilirubin 1.60 H (0.2-1.0) mg/dL AST 18 (15-37) U/L ALT 16 (12-78) U/L Alkaline Phosphatase 59 (46-116) U/L Serum Total Protein 6.7 (6.4-8.2) gm/dL Albumin 3.0 L (3.4-5.0) g/dL Radiology Exams: Radiology Procedures Category Date Time Status ECHO W/2D AND DOPPLER [US] Routine Exams 02/27/17 11:40 Taken Assessment/Plan (1) UTI (lower urinary tract infection) Current Visit: Yes Status: Acute Assessment & Plan: We again discussed today her worsening confusion could be secondary to new stroke especially with finding her paroxysmal atrial fibrillation however on testing she has no focal deficits. She has refused the brain MRI with her claustrophobia. Her confusion is exacerbated when she is febrile. last fever was 100.4 02/26 am but still very weak with confusion. She has order to repeat blood cultures should she spike another temp She lives at home alone. She was encouraged to consider a rehab stay especially with her confusion, but she wishes to return to home she will be evaluated by PT for further consideration. Code(s): N39.0 - URINARY TRACT INFECTION, SITE NOT SPECIFIED (2) Metabolic encephalopathy Current Visit: Yes Status: Acute Code(s): G93.41 - METABOLIC ENCEPHALOPATHY (3) Atrial fibrillation Current Visit: Yes Status: Acute Assessment & Plan: paroxysmal New onset currently converted back to sinus this am. Started on Eliquis yesterday Echo results pending continue metoprolol Code(s): I48.91 - UNSPECIFIED ATRIAL FIBRILLATION (4) Type 2 diabetes mellitus Current Visit: Yes Status: Acute (5) Essential hypertension Current Visit: Yes Status: Acute Code(s): I10 - ESSENTIAL (PRIMARY) HYPERTENSION (6) Dehydration Current Visit: Yes Status: Acute Code(s): E86.0 - DEHYDRATION (7) Acute kidney injury Current Visit: Yes Status: Resolved Code(s): N17.9 - ACUTE KIDNEY FAILURE, UNSPECIFIED
[2017-02-28] MEDS ORDERED: Sodium Chloride 0.9% 10 ML FLUSH Syringe IV PRN (08:31)
[2017-02-28] MEDS: ELIQUIS PO SCH ×2 (10:18→21:55)
[2017-02-28] MEDS: Maxzide-25MG Tablet PO SCH (10:18)
[2017-02-28] MEDS: Magnesium 1 Gm / 100 Ml D5W*** 100 ML IV SCH ×2 (10:18→12:23)
[2017-02-28] MEDS: Accupril 10MG Tablet PO SCH (10:18)
[2017-02-28] MEDS: Apresoline 25 MG TABLET PO SCH ×3 (10:19→21:55)
[2017-02-28] MEDS: Toprol Xl 100 MG PO SCH (10:19)
[2017-02-28] MEDS: SYNTHROID 25 MCG PO SCH (10:19)
[2017-02-28] MEDS: Pepcid 20 MG PO SCH ×2 (10:19→21:55)
[2017-02-28] MEDS: Klor Con 10 MEQ PO SCH ×2 (10:19→21:55)
[2017-02-28] MEDS: Sodium Chloride 0.9% 10 ML FLUSH Syringe IV SCH (15:57)
[2017-02-28] MEDS: Glucophage 500 MG PO SCH (17:01)
[2017-02-28] MEDS: ZOCOR 20MG PO SCH (21:55)
[2017-02-28] MEDS: ROCEPHIN 1 Gm-D5w 50 ml Bag** 1 G/50 ML IVPB IV SCH (21:58)
[2017-03-01] MEDS: Sodium Chloride 0.9% 10 ML FLUSH Syringe IV SCH ×2 (01:05→05:50)
[2017-03-01] MEDS: Xalatan OP SCH (01:06)
[2017-03-01] MEDS: Glucophage 500 MG PO SCH (08:10)
[2017-03-01] MEDS: Klor Con 10 MEQ PO SCH (08:59)
[2017-03-01] MEDS: Pepcid 20 MG PO SCH (08:59)
[2017-03-01] MEDS: ELIQUIS PO SCH (08:59)
[2017-03-01] MEDS: Apresoline 25 MG TABLET PO SCH (08:59)
[2017-03-01] MEDS: SYNTHROID 25 MCG PO SCH (08:59)
[2017-03-01] MEDS: Accupril 10MG Tablet PO SCH (08:59)
[2017-03-01] MEDS: Maxzide-25MG Tablet PO SCH (08:59)
[2017-03-01] MEDS: Toprol Xl 100 MG PO SCH (08:59)
--- NOTE | 2017-03-01 09:27 | PCM.DCORD ---
- Discharge Discharge Date: 03/01/17 Disposition: HOME HEALTH SERVICE Prescriptions: New Apixaban [Eliquis] 5 mg PO BID #30 tablet Continue Famotidine/Calcium Carb/Mag [Pepcid Complete Tablet Chew] 1 each PO DAILY PRN PRN PRN Reason: Indigestion Meloxicam 7.5 mg [Mobic 7.5 MG] 7.5 mg PO BID Tolterodine Tartrate [Detrol LA] 4 mg PO BID Triamterene/Hydrochlorothiazid [Triamterene-Hctz 37.5-25 mg Tb] 1 each PO DAILY Levothyroxine Sodium 25 Mcg [Synthroid 25 Mcg] 25 mcg PO DAILY Metformin HCl 500 mg [Glucophage 500 MG] 1,000 mg PO BID HydrALAzine HCL 25 MG TAB [Apresoline 25 MG TABLET] 25 mg PO BID Metoprolol Succinate 50 mg [Toprol Xl 50 MG] 100 mg PO DAILY Quinapril HCl [Accupril] 40 mg PO DAILY Latanoprost [Xalatan] 2.5 ml OP HS Cholecalciferol (Vitamin D3) [Vitamin D] 2,000 unit PO DAILY Atorvastatin Calcium [Lipitor 20MG Tablet] 20 mg PO DAILY #30 tab Pioglitazone HCl 15 mg PO DAILY Follow up with: AQUILINO GARCIA [Primary Care Provider] - Forms: Patient Portal Information
[2017-03-01 11:14] VITALS: BP 136/60; PULSE 76; O2SAT 93
--- NOTE | 2017-03-04 13:41 | DS ---
DISCHARGE DIAGNOSIS: TRANSIENT ISCHEMIC ATTACK. HISTORY: The patient is an 81 year-old white female who apparently resides at home. She apparently had a couple episodes of garbled speech and not tracking clearly on talking to friends and neighbors. The patient was brought to the emergency room for evaluation and management and subsequently admitted to the hospital for further evaluation. HOSPITAL COURSE: The patient was admitted to the [facility]. She had evaluations by PT, OT and ST. They felt that the patient had essentially recovered her neurologic deficits to her normal state. 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 The patient refused to have MRI done because she was concerned about the cost. The patient by the morning of 03/01/2017 was back to her normal state of health, was sitting up on the side of the bed. She was clear of thought, alert, oriented x3. No focal deficits were noted at this time. The patient had been placed on Eliquis for prevention of transient ischemic attack or stroke at this time. Her usual home medications otherwise will be continued which include Atorvastatin, Pepcid, pioglitazone, Apresoline, Synthroid, Mobic, Glucophage, Toprol, Accupril, Detrol and hydrochlorothiazide triamterene. The patient will have home visiting nurses and home PT. Although she lives at home she states she has many friends and family that will be by checking on her regularly. She was asked to see Dr. Kendall in follow up in the office next week and to return immediately to the emergency room should she have any other neurologic problems with slurred speech, weakness in her arm or leg or any other problems.
--- NOTE | 2017-03-07 16:05 | ECHO ---
DATE: 02/27/17 A transthoracic echocardiograph examination with color Doppler study was done. INDICATION: Atrial fibrillation. IMPRESSION: 1. MILD LEFT VENTRICULAR HYPOKINESIA WITH ESTIMATED GLOBAL LEFT VENTRICULAR EJECTION FRACTION OF 50%. 2. TRACE TRICUSPID REGURGITATION WITH RIGHT VENTRICULAR SYSTOLIC PRESSURE OF 25 MM OF MERCURY. 3. PULMONIC INSUFFICIENCY. 4. LEFT ATRIAL ENLARGEMENT. 5. LEFT VENTRICULAR HYPERTROPHY. The left ventricle was visualized and demonstrated mild left ventricular hypokinesia with estimated global left ventricular ejection fraction of 50%. There is mild left ventricular hypertrophy. The mitral valve was seen and this opens adequately. No significant mitral regurgitation is seen. The left atrium is mildly enlarged. The aortic valve opens adequately. The right-sided chambers are normal. There is trace tricuspid regurgitation with right ventricular systolic pressure of 25 mm Hg. There is also trace pulmonic insufficiency.
== END 2017-03-01 11:35 | disposition home health service (06) | DRG 69 ==
LOC: ED 19:08 → MED SURG 22:26 → OBSVTOIN 02-25 22:26 → INTOOBSV 02-26 08:03 → OBSVTOIN 02-26 08:03
PROVIDERS: ADMIT Family Medicine; ATTEND Family Medicine
DX: G45.9 Transient cerebral ischemic attack, unspecified (principal); G93.41 Metabolic encephalopathy; N39.0 Urinary tract infection, site not specified; Z85.3 Personal history of malignant neoplasm of breast; N17.9 Acute kidney failure, unspecified; G62.9 Polyneuropathy, unspecified; I10 Essential (primary) hypertension; I48.91 Unspecified atrial fibrillation; J44.9 Chronic obstructive pulmonary disease, unspecified; G47.30 Sleep apnea, unspecified; E03.9 Hypothyroidism, unspecified; M19.90 Unspecified osteoarthritis, unspecified site; N28.9 Disorder of kidney and ureter, unspecified; R41.0 Disorientation, unspecified; E11.9 Type 2 diabetes mellitus without complications; Z79.4 Long term (current) use of insulin; E86.0 Dehydration; Z79.899 Other long term (current) drug therapy
CPT/HCPCS: 36000; 36415; 70450; 71010; 80048; 80053; 81000; 82805; 82962; 83036; 83605; 83735; 85025; 85027; 85610; 85730; 87040; 87077; 87086; 87186; 93005; 93041; 93268; 93306; 96360; 96365; 99285; G0378; J0696; J1650; J2405; J2550; J3475; A9270-GY

== ENCOUNTER 2017-10-31 13:32 | Emergency (ER) | payer MEDICARE ==
--- NOTE | 2017-10-31 13:40 | ERPHSYRPT ---
- History of Present Illness Time Seen by Provider: 10/31/17 13:36 Source: family Exam Limitations: clinical condition Physician History: 82 y/o niddm white female brought into ER by private vehicle by family member. pt not following commands or answering questions. pt moving all extremities and breathing on her own. remainder of history obtained from family member. per pt friend, pt has no family members. she does have h/o htn, tias, metabolic encephalopathy and kidney issues including recurrent infections. med list in computer reveals pt is taking eliquis. her pcp is dr. garcia. pts medical power of family law attorney is a friend who lives in [place]. 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 she began to feel odd and turned back to home. at home, she slumped over in the front seat. 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 captain) Severity: moderate Character of Deficits: unable to speak Deficits: cannot walk, falling, unable to stand (pt moving all extremitis) Baseline/Normal Cognition: alert oriented x 3 Current Cognition: poor alertness Baseline Gait: walks w/o assistance Associated Symptoms: trouble walking Allergies/Adverse Reactions: adhesive Allergy (Verified 08/22/14 18:11) meperidine HCl [From Demerol] Allergy (Verified 08/22/14 18:11) morphine Allergy (Verified 08/22/14 18:11) Penicillins Allergy (Verified 08/22/14 18:11) Sulfa (Sulfonamide Antibiotics) Allergy (Verified 08/22/14 18:11) Home Medications: Levothyroxine Sodium 25 Mcg [Synthroid 25 Mcg] 25 mcg PO DAILY 08/22/14 [ History] Metformin HCl 500 mg [Glucophage 500 MG] 1,000 mg PO BID 08/22/14 [History ] Metoprolol Succinate 50 mg [Toprol Xl 50 MG] 100 mg PO DAILY 08/22/14 [ History] Quinapril HCl [Accupril] 40 mg PO DAILY 08/22/14 [History] Tolterodine Tartrate [Detrol LA] 4 mg PO BID 08/22/14 [History] Triamterene/Hydrochlorothiazid [Triamterene-Hctz 37.5-25 mg Tb] 1 each PO BID [History] Atorvastatin Calcium [Lipitor 20MG Tablet] 20 mg PO DAILY 10/31/17 [History] Pantoprazole Sodium [Protonix] 40 mg PO DAILY 10/31/17 [History] Hx Tetanus, Diphtheria Vaccination/Date Given: Yes Hx Influenza Vaccination/Date Given: Yes Hx Pneumococcal Vaccination/Date Given: Yes - Review of Systems Constitutional: No Symptoms Eyes: No Symptoms Ears, Nose, & Throat: No Symptoms Respiratory: No Symptoms Cardiac: No Symptoms Abdominal/Gastrointestinal: No Symptoms Genitourinary Symptoms: No Symptoms Musculoskeletal: No Symptoms Skin: No Symptoms Neurological: Gait Changes, Lethargy, Speech Changes Psychological: No Symptoms Endocrine: No Symptoms Hematologic/Lymphatic: No Symptoms Immunological/Allergic: No Symptoms All Other Systems: Reviewed and Negative - Past Medical History Pertinent Past Medical History: Yes Neurological History: Peripheral Neuropathy, TIA ENT History: Cataracts, Macular Degeneration Cardiac History: High Cholesterol, Hypertension, Other Respiratory History: COPD, Sleep Apnea Endocrine Medical History: Diabetes Type II, Hypothyroidism, Other Musculoskeletal History: Osteoarthritis GI Medical History: Diverticulitis History: Renal Disease, Other Psycho-Social History: No Pertinent History Female Reproductive Disorders: Breast Cancer Other Medical History: L KNEE ARTHROSCOPIC SURGERY, HEART CATH, BREAST CA. Sleep Apnea. TIA. Nodules on thyroid - Past Surgical History Past Surgical History: Yes Neuro Surgical History: No Pertinent History Cardiac: Cardiac Catheterization Respiratory: No Pertinent History Gastrointestinal: No Pertinent History Genitourinary: No Pertinent History Musculoskeletal: Orthopedic Surgery Female Surgical History: Tubal Ligation - Social History Smoking Status: Former smoker How long have you smoked: 49 Exposure to second hand smoke: No Drug Use: none Patient Lives Alone: Yes (here with a friend) - Nursing Vital Signs Nursing Vital Signs: Initial Vital Signs Pulse Rate 78 10/31/17 13:34 Respiratory Rate 18 10/31/17 13:34 Blood Pressure 162/63 10/31/17 13:34 O2 Sat by Pulse Oximetry 98 10/31/17 13:34 Pain Scale Pain Intensity 3 - Johana Coma Scale Best Eye Response ([place]): (4) open spontaneously Best Verbal Response (Johana): (2) incomprehsible sounds Best Motor Response (Johana): (5) localizes to pain [place] Total: 11 - Physical Exam General Appearance: lethargy Eye Exam: bilateral eye: normal inspection, PERRL, EOMI Ears, Nose, Throat Exam: normal ENT inspection, TMs normal Neck Exam: normal inspection, non-tender, supple, full range of motion Respiratory: normal breath sounds, lungs clear, airway intact, No chest tenderness, No respiratory distress, No accessory muscle use, No wheezing, No stridor Cardiovascular: regular rate/rhythm, normal heart sounds, normal peripheral pulses Gastrointestinal: soft, normal bowel sounds, No tenderness, No guarding, No rebound Pelvic Exam: not done Rectal Exam: not done Back Exam: normal inspection, normal range of motion, No CVA tenderness, No vertebral tenderness Extremity Exam: normal inspection, normal range of motion, other (pt moving all ext) Mental Status: other (awake, breathing on her own, handling own 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 cannot adequately assess neuro status) Skin Exam: normal color, warm, dry SpO2 Interpretation: normal Oxygen Delivery: Room Air - Course Nursing assessment & vital signs reviewed: Yes EKG Interpreted by Me: RATE, NORMAL AXIS, NORMAL QRS, NORMAL ST-T Ordered Tests: Active Orders 24 hr Category Date Time Status Economist Research Assistant STAT Care 10/31/17 13:39 Active EKG-ER Only STAT Care 10/31/17 13:38 Active Hartman [Catheter-[place] Hartman] STAT Care 10/31/17 13:40 Active IV Insertion STAT Care 10/31/17 13:38 Active NPO (ED) STAT Care 10/31/17 13:38 Active Pulse Oximetry (ED) STAT Care 10/31/17 13:38 Active HEAD WITHOUT CONTRAST [CT] Stat Exams 10/31/17 13:39 Completed CBC W DIFF Stat Lab 10/31/17 13:38 Completed CMP Stat Lab 10/31/17 13:49 Completed CULTURE,URINE Stat Lab 10/31/17 14:00 Received Manual Differential NC Stat Lab 10/31/17 13:38 Completed UA W/ MICROSCOPIC Stat Lab 10/31/17 14:00 Completed Urine Triage Profile Stat Lab 10/31/17 14:00 Completed Medication Summary Discontinued Medications Generic Name Dose Route Start Last Admin Trade Name Freq PRN Reason Stop Dose Admin Hydralazine HCl 10 mg 10/31/17 14:11 10/31/17 14:22 Apresoline 20 Mg/Ml Inj IV 10/31/17 14:12 10 mg STAT ONE Administration Metoprolol Tartrate 5 mg 10/31/17 14:50 10/31/17 14:52 Lopressor 5 Mg/5 Ml Injection IV 10/31/17 14:51 5 mg STAT ONE Administration Metoprolol Tartrate Confirm 10/31/17 14:51 Lopressor 5 Mg/5 Ml Injection Administered 10/31/17 14:52 Dose 5 mg IV .STK-MED ONE Metoprolol Tartrate 5 mg 10/31/17 15:48 10/31/17 15:51 Lopressor 5 Mg/5 Ml Injection IV 10/31/17 15:49 5 mg STAT ONE Administration Metoprolol Tartrate Confirm 10/31/17 15:51 Lopressor 5 Mg/5 Ml Injection Administered 10/31/17 15:52 Dose 5 mg IV .STK-MED ONE Lab/Rad Data: Laboratory Result Diagrams 10/31/17 13:38 10/31/17 13:49 Laboratory Results 10/31/17 10/31/17 10/31/17 Range/Units 15:50 14:00 14:00 WBC (4.0-10.5) K/mm3 RBC (4.1-5.4) M/mm3 Hgb (12.0-16.0) gm/dl Hct (35-47) % MCV (78-100) fl MCH (26-32) pg MCHC (32-36) g/dl RDW (11.5-14.0) % Plt Count (150-450) K/mm3 MPV (6-9.5) fl Absolute Granulocytes (1.4-6.9) Segmented Neutrophils (36.0-66.0) % Band Neutrophils (0.0-2.0) % Lymphocytes (Manual) (24-44) % Monocytes (Manual) (0.0-12.0) % Eosinophils (Manual) (0.00-3.0) % Metamyelocytes % Platelet Estimate (NORMAL) RBC Morphology Sodium (137-145) mmol/L Potassium (3.5-5.1) mmol/L Chloride (98-107) mmol/L Carbon Dioxide (22-30) mmol/L Anion Gap (5-15) MEQ/L BUN (7-17) mg/dL Creatinine (0.52-1.04) mg/dL Estimated GFR ML/MIN Glucose (74-106) mg/dL Calcium (8.4-10.2) mg/dL Total Bilirubin (0.2-1.3) mg/dL AST (14-36) U/L ALT (0-35) U/L Alkaline Phosphatase (38-126) U/L Ammonia < 9 L (9-30) umol/L Serum Total Protein (6.3-8.2) g/dL Albumin (3.5-5.0) g/dL Ur Collection Type CATH Urine Color YELLOW (YELLOW) Urine Appearance CLEAR (CLEAR) Urine pH 8.0 (5-6) Ur Specific [place] 1.005 (1.005-1.025) Urine Protein TRACE (Negative) Urine Ketones NEGATIVE (NEGATIVE) Urine Blood 5-10 (0-5) Александр/ul Urine Nitrite NEGATIVE (NEGATIVE) Urine Bilirubin NEGATIVE (NEGATIVE) Urine Urobilinogen NORMAL (0-1) mg/dL Ur Leukocyte Esterase TRACE (NEGATIVE) Urine Microscopic RBC 0-2 (0-2) /HPF Urine Microscopic WBC 2-5 (0-5) /HPF Urine Bacteria RARE (NEGATIVE) /HPF Urine Culture Reflexed YES (NO) Urine Glucose NEGATIVE (NEGATIVE) mg/dL Urine Opiates Level NEGATIVE (NEGATIVE) Ur Methadone NEGATIVE (NEGATIVE) Urine Barbiturates NEGATIVE (NEGATIVE) Ur Phencyclidine (PCP) NEGATIVE (NEGATIVE) Urine Amphetamine NEGATIVE (NEGATIVE) U Benzodiazepine Level NEGATIVE (NEGATIVE) Urine Cocaine NEGATIVE (NEGATIVE) Urine Marijuana (THC) NEGATIVE (NEGATIVE) Specimen Received 10/31/17 1400 10/31/17 10/31/17 Range/Units 13:49 13:38 WBC 11.0 H (4.0-10.5) K/mm3 RBC 4.47 (4.1-5.4) M/mm3 Hgb 12.4 (12.0-16.0) gm/dl Hct 38.2 (35-47) % MCV 85.5 (78-100) fl MCH 27.7 (26-32) pg MCHC 32.5 (32-36) g/dl RDW 14.3 H (11.5-14.0) % Plt Count 271 (150-450) K/mm3 MPV 10.5 H (6-9.5) fl Absolute Granulocytes 7.0 H (1.4-6.9) Segmented Neutrophils 62 (36.0-66.0) % Band Neutrophils 2 (0.0-2.0) % Lymphocytes (Manual) 20 L (24-44) % Monocytes (Manual) 10 (0.0-12.0) % Eosinophils (Manual) 4 H (0.00-3.0) % Metamyelocytes 2 % Platelet Estimate NORMAL (NORMAL) RBC Morphology NORMAL Sodium 141 (137-145) mmol/L Potassium 4.8 (3.5-5.1) mmol/L Chloride 104 (98-107) mmol/L Carbon Dioxide 24 (22-30) mmol/L Anion Gap 18.2 H (5-15) MEQ/L BUN 29 H (7-17) mg/dL Creatinine 1.31 H (0.52-1.04) mg/dL Estimated GFR 41.3 ML/MIN Glucose 114 H (74-106) mg/dL Calcium 9.5 (8.4-10.2) mg/dL Total Bilirubin 1.20 (0.2-1.3) mg/dL AST 29 (14-36) U/L ALT 17 (0-35) U/L Alkaline Phosphatase 84 (38-126) U/L Ammonia (9-30) umol/L Serum Total Protein 7.4 (6.3-8.2) g/dL Albumin 4.2 (3.5-5.0) g/dL Ur Collection Type Urine Color (YELLOW) Urine Appearance (CLEAR) Urine pH (5-6) Ur Specific [place] (1.005-1.025) Urine Protein (Negative) Urine Ketones (NEGATIVE) Urine Blood (0-5) Александр/ul Urine Nitrite (NEGATIVE) Urine Bilirubin (NEGATIVE) Urine Urobilinogen (0-1) mg/dL Ur Leukocyte Esterase (NEGATIVE) Urine Microscopic RBC (0-2) /HPF Urine Microscopic WBC (0-5) /HPF Urine Bacteria (NEGATIVE) /HPF Urine Culture Reflexed (NO) Urine Glucose (NEGATIVE) mg/dL Urine Opiates Level (NEGATIVE) Ur Methadone (NEGATIVE) Urine Barbiturates (NEGATIVE) Ur Phencyclidine (PCP) (NEGATIVE) Urine Amphetamine (NEGATIVE) U Benzodiazepine Level (NEGATIVE) Urine Cocaine (NEGATIVE) Urine Marijuana (THC) (NEGATIVE) Specimen Received - Progress Progress: unchanged Progress Note: 10/31/17 16:[address] fletcher neurologist at [facility]. dr. fletcher called back at 1600. i reviewed pt hx, condition, lab, ekg and ct brain results. no tpa and no other medical recommendations. call hospitalist for admission and he will see pt [id number] spoke with [facility] hospitalist dr. dawson. i reviewed pt hx, condition, lab, ekg and ct brain results and notified him of d/w dr. fletcher. dr. dawson accepts pt for transfer/admission. Discussed with Dr.: Other (drs. fletcher(neurologist) and samir(hospitalist ) at [facility]) - Departure Time of Disposition: 16:20 Departure Disposition: Home Clinical Impression: Cerebrovascular accident (CVA) determined by clinical assessment Condition: Fair Critical Care Time: Yes Critical Care Time(excluding separately billable procedures): 30-74 minutes Referrals: AQUILINO GARCIA [Primary Care Provider] -
[2017-10-31 13:53] LABS: Hematocrit 38.2 % (35-47); Hemoglobin 12.4 gm/dl (12.0-16.0); Mean Cell Volume 85.5 fl (78-100); Mean Corpuscular Hemoglobin 27.7 pg (26-32); Mean Corpuscular Hgb Concent. 32.5 g/dl (32-36); Mean Platelet Volume 10.5 fl (6-9.5); Platelet Count 271 K/mm3 (150-450); Red Blood Count 4.47 M/mm3 (4.1-5.4); Red Cell Distribution Width 14.3 % (11.5-14.0)
[2017-10-31 14:08] LABS: Appearance CLEAR (CLEAR); Bilirubin NEGATIVE (NEGATIVE); Glucose NEGATIVE (NEGATIVE); Ketones NEGATIVE (NEGATIVE); Leukocyte Esterase TRACE (NEGATIVE); Nitrite NEGATIVE (NEGATIVE); Protein,Urine Dip TRACE (Negative); Specific Gravity 1.005 (1.005-1.025); Urobilinogen NORMAL mg/dL (0-1)
[2017-10-31 14:11] LABS: Bacteria RARE /HPF (NEGATIVE); RBC 0-2 /HPF (0-2)
[2017-10-31] MEDS ORDERED: APRESOLINE 20 MG/ML INJ IV ONE (14:11)
[2017-10-31 14:12] LABS: ALBUMIN 4.2 g/dL (3.5-5.0); ANION GAP 18.2 MEQ/L (5-15); BILIRUBIN,TOTAL 1.2 mg/dL (0.2-1.3); Calcium 9.5 mg/dL (8.4-10.2); Creatinine 1 1.31 mg/dL (0.52-1.04); Potassium 4.8 mmol/L (3.5-5.1); Total Protein 7.4 g/dL (6.3-8.2)
--- NOTE | 2017-10-31 14:12 | XRAY ---
Indication: Confusion and nonverbal. History TIA. Multiple contiguous axial images obtained through the head without contrast. Comparison: February 24, 2017. 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 Elsewhere there remains age-appropriate global atrophy, mild periventricular degenerative micro-ischemia bilaterally, and remote lacunar infarcts of the left caudate head and left external capsule. No acute intracranial hemorrhage, hydrocephalus, or mass effect. Fourth ventricle is midline. Bony calvarium intact. Visualized paranasal sinuses and mastoid air cells are clear. Impression: 1. 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 2. Stable atrophy, degenerative micro-ischemia, and remote lacunar infarcts. 3. No acute intracranial abnormalities. CT DI 61.49
[2017-10-31 14:23] LABS: BAND 2 % (0.0-2.0); Eosinophil 4 % (0.00-3.0); Lymphocytes 20 % (24-44); Metamyelocyte 2 %; Monocyte 10 % (0.0-12.0); Neutrophils 62 % (36.0-66.0); Platelet Estimate NORMAL (NORMAL); Total Cells Counted 100
[2017-10-31 14:29] LABS: Amphetamine,Urine NEGATIVE (NEGATIVE); Barbiturate,Urine NEGATIVE (NEGATIVE); Benzodiazepine,Urine NEGATIVE (NEGATIVE); Cocaine,Urine NEGATIVE (NEGATIVE); Methadone,Urine NEGATIVE (NEGATIVE); Opiate,Urine NEGATIVE (NEGATIVE); PCP,Urine NEGATIVE (NEGATIVE); THC,Urine NEGATIVE (NEGATIVE)
[2017-10-31] MEDS ORDERED: LOPRESSOR 5 MG/5 ML INJECTION IV ONE ×4 (14:50→15:51)
[2017-10-31 16:56] VITALS: BP 205/77; PULSE 76; O2SAT 95
== END 2017-10-31 16:48 | disposition short-term general hospital (02) ==
LOC: ED 13:32
DX: I63.9 Cerebral infarction, unspecified (principal); Z79.899 Other long term (current) drug therapy; E11.9 Type 2 diabetes mellitus without complications; Z79.84 Long term (current) use of oral hypoglycemic drugs
CPT/HCPCS: 36000; 36415; 51702; 70450; 80053; 80307; 81000; 82140; 85025; 87077; 87086; 87186; 93005; 93041; 96374; 96375; 96376; 99285; J0360

== ENCOUNTER 2018-06-07 10:14 | Inpatient (IN) | payer MEDICARE ==
[2018-06-07] MEDS ORDERED: DUONEB 0.5-3 MG/3 ml Neb IH ONE ×2 (10:39→11:30)
--- NOTE | 2018-06-07 10:42 | ERPHSYRPT ---
- History of Present Illness Time Seen by Provider: 06/07/18 10:29 Source: patient Exam Limitations: no limitations Physician History: Pt started c/o productive cough, increasing SOB 2 days ago, nausea, but denies chest pain, fever, chills, sore throat, vomiting, diarrhea or other complaints. Timing/Duration: day(s) (2) Activities at Onset: none Severity of Dyspnea-Max: moderate Severity of Dyspnea-Current: moderate Possible Cause: occasional episodes Modifying Factors: Improves With: exertion Associated Symptoms: cough, ankle swelling, productive cough Allergies/Adverse Reactions: adhesive Allergy (Verified 06/07/18 10:51) meperidine HCl [From Demerol] Allergy (Verified 06/07/18 10:51) morphine Allergy (Verified 06/07/18 10:51) Penicillins Allergy (Verified 06/07/18 10:51) Sulfa (Sulfonamide Antibiotics) Allergy (Verified 06/07/18 10:51) Home Medications: Levothyroxine Sodium 25 Mcg [Synthroid 25 Mcg] 25 mcg PO DAILY 08/22/14 [ History] Metformin HCl 500 mg [Glucophage 500 MG] 1,000 mg PO BID 08/22/14 [History ] Metoprolol Succinate 50 mg [Toprol Xl 50 MG] 100 mg PO DAILY 08/22/14 [ History] Tolterodine Tartrate [Detrol LA] 4 mg PO BID 08/22/14 [History] Atorvastatin Calcium [Lipitor 20MG Tablet] 20 mg PO DAILY 10/31/17 [History] Amiodarone HCl 200 mg [Cordarone 200 MG] 200 mg PO DAILY 06/07/18 [History ] Furosemide 20 mg [Lasix 20 mg] 20 mg PO DAILY 06/07/18 [History] Latanoprost [Xalatan] 1 drop OP HS 06/07/18 [History] Nifedipine Xl 30 mg [Adalat CC 30 MG TABLET] 30 mg PO DAILY 06/07/18 [ History] Hx Tetanus, Diphtheria Vaccination/Date Given: Yes Hx Influenza Vaccination/Date Given: Yes Hx Pneumococcal Vaccination/Date Given: Yes - Review of Systems Constitutional: No Symptoms Eyes: No Symptoms Ears, Nose, & Throat: No Symptoms Respiratory: Cough, Dyspnea Cardiac: No Symptoms Abdominal/Gastrointestinal: Nausea Genitourinary Symptoms: No Symptoms Musculoskeletal: No Symptoms Skin: No Symptoms Neurological: No Symptoms All Other Systems: Reviewed and Negative - Past Medical History Pertinent Past Medical History: Yes Neurological History: Peripheral Neuropathy, TIA ENT History: Cataracts, Macular Degeneration Cardiac History: High Cholesterol, Hypertension, Other Respiratory History: COPD, Sleep Apnea Endocrine Medical History: Diabetes Type II, Hypothyroidism, Other Musculoskeletal History: Osteoarthritis GI Medical History: Diverticulitis History: Renal Disease, Other Psycho-Social History: No Pertinent History Female Reproductive Disorders: Breast Cancer Other Medical History: L KNEE ARTHROSCOPIC SURGERY, HEART CATH, BREAST CA. Sleep Apnea. TIA. Nodules on thyroid - Past Surgical History Past Surgical History: Yes Neuro Surgical History: No Pertinent History Cardiac: Cardiac Catheterization Respiratory: No Pertinent History Gastrointestinal: No Pertinent History Genitourinary: No Pertinent History Musculoskeletal: Orthopedic Surgery Female Surgical History: Tubal Ligation - Social History Smoking Status: Former smoker How long have you smoked: 49 Exposure to second hand smoke: No Drug Use: none Patient Lives Alone: Yes (here with a friend) - Nursing Vital Signs Nursing Vital Signs: Initial Vital Signs Temperature 98.6 F 06/07/18 10:30 Pulse Rate 74 06/07/18 10:30 Blood Pressure 201/96 06/07/18 10:30 O2 Sat by Pulse Oximetry 87 L 06/07/18 10:30 Pain Scale Pain Intensity 0 - Physical Exam General Appearance: no apparent distress Eye Exam: eyes nml inspection Ears, Nose, Throat Exam: normal ENT inspection, normal pharynx Neck Exam: normal inspection, non-tender, supple, No carotid bruit, No JVD Respiratory Exam: normal breath sounds, lungs clear, airway intact, No chest tenderness, No respiratory distress Cardiovascular/Chest Exam: normal heart sounds, regular rate/rhythm, normal peripheral pulses, edema (2 + edema bilaterally), No murmur Abdominal/Gastrointestinal Exam: soft, normal bowel sounds, No tenderness Extremity Exam: non-tender, No no calf tenderness, No josefa's sign Neurologic Exam: alert, oriented x 3, cooperative, normal mood/affect Skin Exam: normal color, warm, dry, No rash Lymphatic Exam: No adenopathy SpO2 Interpretation: normal O2 Delivery: Room Air - Course Nursing assessment & vital signs reviewed: Yes EKG Interpreted by Me: RATE (74/min), NORMAL AXIS, NORMAL INTERVALS, Non- specific ST Changes, Other (RVH pattern) - Radiology Exams Chest X-ray Interpretation: Interpreted by me, Other (CHF) Ordered Tests: Active Orders 24 hr Category Date Time Status Injection Molding Engineer STAT Care 06/07/18 10:38 Active EKG-ER Only STAT Care 06/07/18 10:37 Active IV Insertion STAT Care 06/07/18 10:37 Active CHEST 2 VIEWS (PA AND LAT) Stat Exams 06/07/18 10:37 Taken CBC W DIFF Stat Lab 06/07/18 11:00 Completed CK-Creatinine Phosphokinase Stat Lab 06/07/18 11:00 Completed CMP Stat Lab 06/07/18 11:00 Completed NT PRO BNP Stat Lab 06/07/18 11:00 Completed PROTIME WITH INR Stat Lab 06/07/18 11:00 Completed PTT Stat Lab 06/07/18 11:00 Completed TROPONIN Q3H Lab 06/07/18 11:00 Completed TROPONIN Q3H Lab 06/07/18 13:50 Received TROPONIN Q3H Lab 06/07/18 16:45 Ordered TROPONIN Q3H Lab 06/07/18 19:45 Ordered TROPONIN Q3H Lab 06/07/18 22:45 Ordered Respiratory Therapy Assessment DAILY RT 06/07/18 11:27 Completed Medication Summary Discontinued Medications Generic Name Dose Route Start Last Admin Trade Name Freq PRN Reason Stop Dose Admin Albuterol/Ipratropium 3 ml 06/07/18 10:39 06/07/18 11:28 Duoneb 0.5-3 Mg/3 Ml Neb IH 06/07/18 10:40 3 ml STAT ONE Administration Albuterol/Ipratropium Confirm 06/07/18 11:30 Duoneb 0.5-3 Mg/3 Ml Neb Administered 06/07/18 11:31 Dose 3 ml IH .STK-MED ONE Furosemide 40 mg 06/07/18 13:40 06/07/18 13:59 Lasix 40 Mg/4 Ml IV 06/07/18 13:41 40 mg STAT ONE Administration Furosemide Confirm 06/07/18 13:47 Lasix 40 Mg/4 Ml Administered 06/07/18 13:48 Dose 40 mg .ROUTE .STK-MED ONE Lab/Rad Data: Laboratory Result Diagrams 06/07/18 11:00 06/07/18 11:00 Laboratory Results 06/07/18 06/07/18 06/07/18 Range/Units 11:00 11:00 11:00 WBC (4.0-10.5) K/mm3 RBC (4.1-5.4) M/mm3 Hgb (12.0-16.0) gm/dl Hct (35-47) % MCV (78-100) fl MCH (26-32) pg MCHC (32-36) g/dl RDW (11.5-14.0) % Plt Count (150-450) K/mm3 MPV (6-9.5) fl Gran % (36.0-66.0) % Eos # (Auto) (0-0.5) Absolute Lymphs (auto) (1.0-4.6) Absolute Monos (auto) (0.0-1.3) Lymphocytes % (24.0-44.0) % Monocytes % (0.0-12.0) % Eosinophils % (0.00-5.0) % Basophils % (0.0-0.4) % Absolute Granulocytes (1.4-6.9) Basophils # (0-0.4) PT 16.5 H (9.95-12.35) SECONDS INR 1.41 (0.8-3.0) APTT 32.6 (25.3-37.0) SECONDS Sodium 139 (137-145) mmol/L Potassium 3.8 (3.5-5.1) mmol/L Chloride 105 (98-107) mmol/L Carbon Dioxide 27 (22-30) mmol/L Anion Gap 11.3 (5-15) MEQ/L BUN 17 (7-17) mg/dL Creatinine 1.15 H (0.52-1.04) mg/dL Estimated GFR 48.0 ML/MIN Glucose 143 H (74-106) mg/dL Calcium 8.8 (8.4-10.2) mg/dL Total Bilirubin 1.40 H (0.2-1.3) mg/dL AST 33 (14-36) U/L ALT 20 (0-35) U/L Alkaline Phosphatase 103 (38-126) U/L Creatine Kinase 34 (30-135) U/L Troponin I < 0.012 (0.000-0.034) ng/mL NT-Pro-B Natriuret Pep 3350 H (0-1800) pg/mL Serum Total Protein 7.3 (6.3-8.2) g/dL Albumin 3.5 (3.5-5.0) g/dL 06/07/18 Range/Units 11:00 WBC 8.2 (4.0-10.5) K/mm3 RBC 4.07 L (4.1-5.4) M/mm3 Hgb 10.1 L (12.0-16.0) gm/dl Hct 32.7 L (35-47) % MCV 80.3 (78-100) fl MCH 24.8 L (26-32) pg MCHC 30.9 L (32-36) g/dl RDW 16.9 H (11.5-14.0) % Plt Count 263 (150-450) K/mm3 MPV 9.7 H (6-9.5) fl Gran % 72.0 H (36.0-66.0) % Eos # (Auto) 0.16 (0-0.5) Absolute Lymphs (auto) 1.37 (1.0-4.6) Absolute Monos (auto) 0.73 (0.0-1.3) Lymphocytes % 16.7 L (24.0-44.0) % Monocytes % 8.9 (0.0-12.0) % Eosinophils % 2.0 (0.00-5.0) % Basophils % 0.4 (0.0-0.4) % Absolute Granulocytes 5.90 (1.4-6.9) Basophils # 0.03 (0-0.4) PT (9.95-12.35) SECONDS INR (0.8-3.0) APTT (25.3-37.0) SECONDS Sodium (137-145) mmol/L Potassium (3.5-5.1) mmol/L Chloride (98-107) mmol/L Carbon Dioxide (22-30) mmol/L Anion Gap (5-15) MEQ/L BUN (7-17) mg/dL Creatinine (0.52-1.04) mg/dL Estimated GFR ML/MIN Glucose (74-106) mg/dL Calcium (8.4-10.2) mg/dL Total Bilirubin (0.2-1.3) mg/dL AST (14-36) U/L ALT (0-35) U/L Alkaline Phosphatase (38-126) U/L Creatine Kinase (30-135) U/L Troponin I (0.000-0.034) ng/mL NT-Pro-B Natriuret Pep (0-1800) pg/mL Serum Total Protein (6.3-8.2) g/dL Albumin (3.5-5.0) g/dL - Progress Progress: improved Air Movement: good Progress Note: 06/07/18 14:44 Pt was given 40 mg Lasix iv, started diuresing, afebrile, denies chest pain, stable, we called Dr Gupta, discussed her results and current condition, he agreed to admit her for observation, patient was informed and agreed, she has been stable. Blood Culture(s) Obtained: No Antibiotics given: No Discussed with .: Alonso Will see patient in: hospital (observation) Counseled pt/family regarding: lab results, diagnosis, rad results - Departure Departure Disposition: Observation Clinical Impression: CHF (congestive heart failure) Qualifiers: Heart failure type: unspecified Heart failure chronicity: acute Qualified Code( s): I50.9 - Heart failure, unspecified Condition: Stable Critical Care Time: No Referrals: VIRY ROJAS [Primary Care Provider] - Instructions: Heart Failure
[2018-06-07 11:06] LABS: BASOPHIL % 0.4 % (0.0-0.4); Basophil (Absolute #) 0.03 (0-0.4); Eosinophil (Absolute #) 0.16 (0-0.5); Hematocrit 32.7 % (35-47); Hemoglobin 10.1 gm/dl (12.0-16.0); Lymphocyte (Absolute #) 1.37 (1.0-4.6); Lymphocytes % 16.7 % (24.0-44.0); Mean Cell Volume 80.3 fl (78-100); Mean Corpuscular Hemoglobin 24.8 pg (26-32); Mean Corpuscular Hgb Concent. 30.9 g/dl (32-36); Mean Platelet Volume 9.7 fl (6-9.5); Monocyte (Absolute #) 0.73 (0.0-1.3); Monocytes % 8.9 % (0.0-12.0); Platelet Count 263 K/mm3 (150-450); Red Blood Count 4.07 M/mm3 (4.1-5.4); Red Cell Distribution Width 16.9 % (11.5-14.0); White Blood Count 8.2 K/mm3 (4.0-10.5)
[2018-06-07 11:09] LABS: INR 1.41 (0.8-3.0); PROTIME 16.5 SECONDS (9.95-12.35)
[2018-06-07 11:11] LABS: PTT 32.6 SECONDS (25.3-37.0)
[2018-06-07 11:22] LABS: ALBUMIN 3.5 g/dL (3.5-5.0); ANION GAP 11.3 MEQ/L (5-15); BILIRUBIN,TOTAL 1.4 mg/dL (0.2-1.3); Calcium 8.8 mg/dL (8.4-10.2); Creatinine 1 1.15 mg/dL (0.52-1.04); Potassium 3.8 mmol/L (3.5-5.1); Total Protein 7.3 g/dL (6.3-8.2)
[2018-06-07] MEDS ORDERED: Lasix 40 MG/4 ML IV ONE (13:40)
[2018-06-07] MEDS ORDERED: Lasix 40 MG/4 ML ONE (13:47)
[2018-06-07] MEDS ORDERED: NovoLOG Insulin SQ PRN (16:30)
--- NOTE | 2018-06-07 16:33 | XRAY ---
Indication: Dyspnea. Comparison: February 24, 2017. PA/lateral chest demonstrates new cardiomegaly with left-sided pacemaker, pulmonary edema, and bibasilar effusions left greater than right favored cardiac decompensation. Superimposed pneumonia not completely excluded. Bony thorax intact again with osteopenia and degenerative changes.
[2018-06-07] MEDS: Cordarone 200 MG PO SCH (16:46)
[2018-06-07] MEDS: Toprol Xl 100 MG PO SCH (16:46)
[2018-06-07] MEDS: Adalat CC 30 MG TABLET PO SCH (16:46)
[2018-06-07] MEDS: SYNTHROID 25 MCG PO SCH (16:46)
[2018-06-07] MEDS ORDERED: TYLENOL 325 MG PO PRN (19:47)
[2018-06-07] MEDS: Lasix 40 MG/4 ML IV SCH (21:12)
[2018-06-07] MEDS: ZOCOR 20MG PO SCH (21:16)
[2018-06-07] MEDS: Ditropan XL 5 MG PO SCH (21:16)
[2018-06-07] MEDS: Protonix 40MG Tablet PO SCH (21:30)
[2018-06-07] MEDS: ELIQUIS 2.5 MG TABLET PO SCH (21:31)
[2018-06-08] MEDS: Xalatan OP SCH ×2 (00:24→22:50)
[2018-06-08] MEDS: Lasix 40 MG/4 ML IV SCH ×2 (08:10→19:39)
[2018-06-08] MEDS: Cozaar 50 MG PO SCH (10:23)
[2018-06-08] MEDS: Ditropan XL 5 MG PO SCH ×2 (10:23→22:49)
[2018-06-08] MEDS: hydroDIURIL 25 MG PO SCH (10:23)
[2018-06-08] MEDS: Adalat CC 30 MG TABLET PO SCH (10:23)
[2018-06-08] MEDS: ELIQUIS 2.5 MG TABLET PO SCH ×2 (10:23→22:48)
[2018-06-08] MEDS: SYNTHROID 25 MCG PO SCH (10:23)
[2018-06-08] MEDS: Protonix 40MG Tablet PO SCH ×2 (10:23→22:48)
[2018-06-08] MEDS: Toprol Xl 100 MG PO SCH (10:23)
[2018-06-08] MEDS: Cordarone 200 MG PO SCH (10:23)
[2018-06-08] MEDS: Klor Con 10 MEQ PO SCH (22:48)
[2018-06-08] MEDS: ZOCOR 20MG PO SCH (22:48)
[2018-06-09 05:54] LABS: Hematocrit 30.7 % (35-47); Hemoglobin 9.5 gm/dl (12.0-16.0); Mean Corpuscular Hgb Concent. 30.9 g/dl (32-36); Platelet Count 256 K/mm3 (150-450); Red Blood Count 3.79 M/mm3 (4.1-5.4); Red Cell Distribution Width 16.7 % (11.5-14.0); White Blood Count 7.2 K/mm3 (4.0-10.5)
[2018-06-09 06:10] LABS: ANION GAP 10.1 MEQ/L (5-15); Calcium 8.8 mg/dL (8.4-10.2); Creatinine 1 1.35 mg/dL (0.52-1.04)
[2018-06-09] MEDS ORDERED: Klor Con 10 MEQ PO ONE (06:56)
--- NOTE | 2018-06-09 07:53 | HP ---
HISTORY OF PRESENT ILLNESS: This is an 82 year-old patient of mine who presented to the emergency department yesterday. She reports she felt like she was having trouble breathing and her blood pressure was high. She also reports her sugars were higher in the hospital. She reports that she noticed an increased swelling of her feet and then made an upcoming appointment with me to address this. She usually does not check her blood pressure at home. She reports that she has Lasix at home but it did not seem to be helping. She was taking up to 40 mg without much effect on the swelling or increased urination. Although she states she always feels like she has increased urination. REVIEW OF SYSTEMS: No dysuria. No abdominal pain. No nausea or vomiting. Her appetite has been good. She ate her whole breakfast. No rashes. Otherwise review of systems is negative. PAST MEDICAL HISTORY: Chronic obstructive pulmonary disease, diabetes mellitus type 2, history of atrial fibrillation, history of sick sinus syndrome with pacemaker placed November 2017. Dr. Lopez is her photostat operator helper. Hyperlipidemia. Hypertension. History of two strokes. Sleep apnea which she uses CPAP for. PAST SURGICAL HISTORY: Pacemaker placement November 2017. Lithotripsy x2. Left knee scope. CURRENT MEDICATIONS: Please see the home medication reconciliation list which I reviewed. ALLERGIES: PLEASE SEE THE CHART WHICH I REVIEWED HER ALLERGIES. SOCIAL HISTORY: She used to smoke but no longer does. FAMILY HISTORY: Noncontributory. PHYSICAL EXAMINATION: VITAL SIGNS: Temperature current 98.4F, heart rate 64, respiratory rate 22, blood pressure at the time I saw her was 199/79 with adjusting her medicine is now 146/66. Oxygen saturation 94% on 2 liters nasal cannula. GENERAL: The patient is a pleasant talkative lady sitting up in bed in no acute distress. CVS: She had a regular rate and rhythm. No murmurs, gallops or rubs are appreciated. CHEST: Clear to auscultation bilaterally. No crackles or wheezes are appreciated. ABDOMEN: Soft, nontender, nondistended with normal bowel sounds. EXTREMITIES: +1 edema to the mid vences bilaterally. No clubbing or cyanosis. SKIN: Warm, dry and intact. LABORATORY DATA AND TESTS: On admission her hemoglobin was 10.1. International normalized ratio 1.4. Glucose 143, bilirubin 1.4, creatinine 1.1. BNP 3350. She has had serial negative troponins. Chest x-ray was read as new cardiomegaly with left sided pacemaker, pulmonary edema and bibasilar effusions left greater than right favors cardiac decompensation, superimposed pneumonia cannot be completely excluded. Bony thorax intact again with osteopenia and degenerative changes. ASSESSMENT AND PLAN: 1) CONGESTIVE HEART FAILURE EXACERBATION: She is currently on Lasix 40 mg IV every 12 hours. I have ordered accurate ins and outs, daily weight as well as an echocardiogram and tele-cardiology consult with her photostat operator helper, Dr. Lopez. I discussed her case with him. 2) HYPERTENSION: Better controlled with the addition of losartan 50 mg p.o. daily and hydrochlorothiazide 25 mg p.o. daily. She also continues on metoprolol succinate 100 mg p.o. daily. 3) DIABETES MELLITUS TYPE 2: Will continue with low dose sliding scale. 4) HYPOTHYROIDISM: Will continue with her home dose of levothyroxine. 5) HISTORY OF ATRIAL FIBRILLATION: Will continue with Eliquis for anticoagulation.
--- NOTE | 2018-06-09 09:09 | XRAY ---
Indication: CHF. Comparison: June 07, 2018. PA/lateral chest demonstrates diminished pulmonary edema with stable bibasilar effusions. Heart is not enlarged with stable left pacemaker. No new cardiopulmonary abnormalities.
--- NOTE | 2018-06-09 10:37 | CONS ---
NOTE: This report was dictated and transcribed at [facility] in [place], [place] on 06/08/2018. CONSULT DATE: 06/08/2018 CHIEF COMPLAINT: Yakelin Evans is an 82 year-old white female admitted at [facility]. HISTORY: This is an 82 year-old white female who has a known history of hypertension and diabetes, came into the hospital because of her significant shortness of breath and increased blood pressure up to 199 systolic pressure. She came in yesterday about 10 o'clock. She also complained that she was having leg edema. She had a dry cough. There is no fever and there was no hemoptysis. There was no chest pain. She was noted to be in congestive heart failure by exam and by chest x-ray. Subsequently she was started on 40 mg of IV Lasix and according to the patient's perception she has improved considerably. Troponins have been obtained and there was no evidence of myocardial infarction. EKG was obtained demonstrating presence of normal sinus rhythm without any acute ST-T segment changes. Thus, patient is clinically doing better. I was advised to see her in consultation because of the clinical diagnosis of congestive heart failure. PAST MEDICAL HISTORY: This is significant for chronic obstructive pulmonary disease, history of sleep apnea for which she is on BiPAP. There is history of hypertension, as well as diabetes mellitus. She has a history of atrial fibrillation and sick sinus syndrome with pauses as long as 6 seconds and she had a permanent pacemaker implantation done by me in November 2017. There is no known myocardial infarction. She has history of cardiac catheterization about ten years ago by Dr. Marie, but the report of that is not available at this time. Other significant history also includes history of hypothyroidism, history of diverticulitis, history of macular degeneration, etc. SOCIAL HISTORY: The patient now does not smoke, but used to smoke in the past. There is no history of alcohol or drug abuse. FAMILY HISTORY: This is not pertinent or important in the care of this patient at this time. PAST SURGICAL HISTORY: Includes knee arthroplasty and removal of a thyroid nodule. HOME MEDICATIONS: At home include the following: Amiodarone 200 mg once a day, apixaban 5 mg b.i.d., Lipitor 20 mg daily, Lasix 20 mg daily she was taking at home, in the hospital taking 40 mg IV b.i.d. She is also on Xalatan eye drops 1 drop each eye h.s. She is on thyroid in the form of Synthroid 25 mcg daily. At home she is on Glucophage 1000 mg b.i.d., which is on hold in the hospital. Metoprolol succinate is 100 mg daily, Nifedipine 30 mg daily, Detrol LA 4 mg b.i.d., losartan 50 mg daily, Pantoprazole 40 mg b.i.d., Zocor 20 mg daily. She is also on aspart insulin as necessary. Also, she is taking Tylenol 650 mg every six hours PRN. PHYSICAL EXAMINATION: Blood pressure this evening 146/66 mm of Mercury, pulse rate 61, temperature normal, respirations 18 per minute. HEENT: Normal with pupils equal, reacting to light. There is no icterus. NECK: Demonstrates no evidence of any carotid bruit or JVD. CARDIAC: Normal heart sounds according to the nurse, although I could not hear cardiac heart sounds with the stethoscope because of technical difficulty. LUNGS: Breath sounds also were difficult to be heard because of technical difficulty. ABDOMEN: According to the nurses, she is nontender, nondistended. EXTREMITIES: Demonstrates 1+ edema this evening per the nurse. There are no ulcers in the legs. NEUROLOGIC: Notes the patient to be awake, but she is very hard of hearing. LAB DATA AND TESTS: Her chest x-ray demonstrated evidence of pacemaker in place and cardiomegaly. There is evidence of basilar effusions, left greater than right, with pulmonary edema. Superimposed on pneumonia could not be excluded. EKG demonstrates normal sinus rhythm without any ST-segment elevation or depression. Troponins are obtained and they are all within normal limits. Electrolytes: Sodium 139, potassium 3.8, chloride 105. ProBNP is 3350, which is markedly elevated, the upper limits of normal being 1800 pg/mL. BUN is 17, creatinine 1.15. CBC: White count 8.2, hemoglobin 10.1 which is mildly decreased, hematocrit 32.7, PLT count is 263,000. IMPRESSION: 1) Congestive heart failure secondary to most likely diastolic left ventricular dysfunction. Patient's systolic function as per the echo last time in January of last year was normal. She had mild mitral and tricuspid regurgitation. 2) Hypertension. 3) Diabetes mellitus. 4) Hyperlipidemia. 5) Atrial fibrillation with a sick sinus syndrome status post permanent pacemaker implant. RECOMMENDATIONS: Based upon these findings, the patient will be advised to continue current antihypertensive drug therapy. Additionally, she will be advised to take 80 mg Lasix as a single dose in the morning along with potassium 10 mEq p.o. b.i.d. She already had an echocardiogram according to the nurse and this echocardiogram will be reviewed. Oxygen will be gradually weaned off. Once she is stable, she could be released to go home. I will see her in the office in about two weeks' time post discharge. Thank you for the consult.
[2018-06-09] MEDS: Cordarone 200 MG PO SCH (10:55)
[2018-06-09] MEDS: Adalat CC 30 MG TABLET PO SCH (10:55)
[2018-06-09] MEDS: Ditropan XL 5 MG PO SCH ×2 (10:56→21:47)
[2018-06-09] MEDS: Klor Con 10 MEQ PO SCH ×2 (10:56→21:47)
[2018-06-09] MEDS: hydroDIURIL 25 MG PO SCH (10:56)
[2018-06-09] MEDS: LASIX 80 MG PO SCH (10:56)
[2018-06-09] MEDS: Protonix 40MG Tablet PO SCH ×2 (10:56→21:46)
[2018-06-09] MEDS: Toprol Xl 100 MG PO SCH (10:56)
[2018-06-09] MEDS: ELIQUIS 2.5 MG TABLET PO SCH ×2 (10:56→21:46)
[2018-06-09] MEDS: Cozaar 50 MG PO SCH (10:56)
[2018-06-09] MEDS: SYNTHROID 25 MCG PO SCH (10:56)
--- NOTE | 2018-06-09 13:15 | PCM.NOTE ---
Date and Time: 06/09/18 1315 Subjective Assessment: She reports less swelling in her feet and increased urination. The nickel plater , Dr. Lopez, saw her over the telemedicine. She continues to have a good appetite. - Review of Systems Constitutional: No Symptoms Eyes: No Symptoms Ears, Nose, & Throat: No Symptoms Respiratory: No Symptoms Cardiac: No Symptoms Abdominal/Gastrointestinal: No Symptoms Genitourinary Symptoms: No Symptoms Musculoskeletal: Other (lower leg swelling) Objective Exam General Appearance: no apparent distress, other (on oxygen by nasal cannula) Neurologic Exam: alert, cooperative, normal mood/affect Skin Exam: normal color, warm, dry Respiratory Exam: normal breath sounds, lungs clear, No crackles/rales, No rhonchi, No wheezing Cardiovascular Exam: regular rate/rhythm, normal heart sounds, No murmur, No friction rub, No gallop Gastrointestinal/Abdomen Exam: soft, normal bowel sounds, No tenderness, No distention Extremity Exam: other (+2 pitting edema to mid shins bilat, no c/c) OBJECTIVE DATA Vital Signs: Vital Signs - 24 hr Temp Pulse Resp BP Pulse Ox 06/09/18 12:48 98 F 59 L 20 165/72 97 06/09/18 08:00 94 L 06/09/18 07:05 98.5 F 60 20 163/86 94 L 06/09/18 04:00 98.4 F 63 20 177/72 92 L 06/09/18 00:00 98.4 F 62 20 181/75 93 L 06/08/18 20:00 98.5 F 60 21 137/72 93 L 06/08/18 19:43 93 L 06/08/18 16:00 98.6 F 61 18 146/66 95 Oxygen-Last 24 hours O2 Percentage 2 Liters = 28% O2 Percentage 2 Liters = 28% O2 Percentage 2 Liters = 28% O2 Percentage 2 Liters = 28% O2 Percentage 2 Liters = 28% O2 Percentage 2 Liters = 28% Pain Assessment - Last Documented Pain Intensity 0 Pain Scale Used [facility] Intake and Output: Intake & Output 06/07/18 06/08/18 06/09/18 06/10/18 06:59 06:59 06:59 06:59 Intake Total 720 480 Output Total 800 4400 800 Balance -80 -3920 -800 Weight 77.6 kg 77.3 kg Lab Results: Accuchecks Date 06/09/18 Date 06/08/18 Time 07:30 Time 16:30 Accucheck Value: 153 Accucheck Value: 146 Accucheck Value: 159 Lab Results-Last 24 Hours 06/09/18 06/09/18 06/09/18 Range/Units 05:45 05:45 05:45 WBC 7.2 (4.0-10.5) K/mm3 RBC 3.79 L (4.1-5.4) M/mm3 Hgb 9.5 L (12.0-16.0) gm/dl Hct 30.7 L (35-47) % MCV 81.0 (78-100) fl MCH 25.0 L (26-32) pg MCHC 30.9 L (32-36) g/dl RDW 16.7 H (11.5-14.0) % Plt Count 256 (150-450) K/mm3 MPV 10.0 H (6-9.5) fl Sodium 137 (137-145) mmol/L Potassium 3.0 L D (3.5-5.1) mmol/L Chloride 97 L (98-107) mmol/L Carbon Dioxide 33 H (22-30) mmol/L Anion Gap 10.1 (5-15) MEQ/L BUN 21 H (7-17) mg/dL Creatinine 1.35 H (0.52-1.04) mg/dL Estimated GFR 39.9 ML/MIN Glucose 156 H (74-106) mg/dL Hemoglobin A1c 5.91 (4.5-6.0) % Calcium 8.8 (8.4-10.2) mg/dL Radiology Exams: Radiology Procedures Category Date Time Status CHEST 2 VIEWS (PA AND LAT) Routine Exams 06/09/18 06:00 Completed ECHO W/2D AND DOPPLER [US] Routine Exams 06/08/18 10:14 Taken Assessment/Plan (1) Acute exacerbation of CHF (congestive heart failure) Current Visit: Yes Status: Acute Assessment & Plan: Continue with diuresis; try to wean oxygen as tolerated. Continue ARB. Code(s): I50.9 - HEART FAILURE, UNSPECIFIED (2) Essential hypertension Current Visit: No Status: Acute Assessment & Plan: Better controlled with addition of arb and HCTZ. Code(s): I10 - ESSENTIAL (PRIMARY) HYPERTENSION (3) Diabetes type 2, controlled Current Visit: Yes Status: Acute Assessment & Plan: Continue lantus and sliding scale. Code(s): E11.9 - TYPE 2 DIABETES MELLITUS WITHOUT COMPLICATIONS (4) Hypothyroidism Current Visit: Yes Status: Acute Code(s): E03.9 - HYPOTHYROIDISM, UNSPECIFIED (5) History of atrial fibrillation Current Visit: Yes Status: Acute Code(s): Z86.79 - PERSONAL HISTORY OF OTHER DISEASES OF THE CIRCULATORY SYSTEM
[2018-06-09] MEDS: Xalatan OP SCH (21:47)
[2018-06-09] MEDS: ZOCOR 20MG PO SCH (21:47)
[2018-06-10] MEDS: SYNTHROID 25 MCG PO SCH (10:55)
[2018-06-10] MEDS: Toprol Xl 100 MG PO SCH (10:55)
[2018-06-10] MEDS: ELIQUIS 2.5 MG TABLET PO SCH ×2 (10:55→21:54)
[2018-06-10] MEDS: LASIX 80 MG PO SCH (10:55)
[2018-06-10] MEDS: Adalat CC 30 MG TABLET PO SCH (10:55)
[2018-06-10] MEDS: Cozaar 50 MG PO SCH (10:55)
[2018-06-10] MEDS: Protonix 40MG Tablet PO SCH ×2 (10:56→21:54)
[2018-06-10] MEDS: Klor Con 10 MEQ PO SCH ×2 (10:56→21:54)
[2018-06-10] MEDS: hydroDIURIL 25 MG PO SCH (10:56)
[2018-06-10] MEDS: Cordarone 200 MG PO SCH (10:56)
[2018-06-10] MEDS: Ditropan XL 5 MG PO SCH ×2 (10:56→21:54)
--- NOTE | 2018-06-10 11:36 | ECHO ---
DATE OF PROCEDURE: 06/08/2018 CLINICAL INFORMATION: Congestive heart failure. The M-mode 2D, and Doppler echocardiogram including color flow Doppler shows the left ventricle is normal in size at 5.3 cm. There is no apical thrombus present. The septal wall thickness is increased at 1.2 cm. The left ventricular posterior wall thickness is increased at 1.4 cm. There is normal contractility of the left ventricle with an ejection fraction calculated at 61%. The right ventricle is grossly normal. The left atrium is moderately dilated with a dimension of 5.0 cm. The interatrial septum is intact. The right atrium is normal. The aortic valve opens well and is trileaflet. There is no aortic regurgitation. There is mitral valve leaflet thickening associated with mild mitral regurgitation present. There is mild tricuspid regurgitation. There is associated elevated right ventricular systolic pressure at 32 mm of Mercury. The pulmonic valve is not well visualized. There is a trace amount of pulmonic regurgitation present. The aortic root is normal at 3.0 cm. There is no pericardial effusion present. IMPRESSION: 1) NORMAL CONTRACTILITY OF THE LEFT VENTRICLE. 2) MILD CONCENTRIC LEFT VENTRICULAR HYPERTROPHY. 3) MILD MITRAL REGURGITATION. 4) MILD TRICUSPID REGURGITATION. 5) MILD PULMONARY HYPERTENSION. 6) TRACE AMOUNT OF PULMONIC REGURGITATION. 7) MODERATE DILATATION OF THE LEFT ATRIUM.
--- NOTE | 2018-06-10 16:38 | PCM.NOTE ---
Date and Time: 06/10/18 1633 Subjective Assessment: She reports she continues to have swelling in her legs. She does not wear oxygen at home. We have been unable to wean her off. RT reports tat she has CPAP at home but has not wanted to wear that here. They were able to qualify her for home oxygen today at rest. - Review of Systems Constitutional: No Symptoms Eyes: No Symptoms Ears, Nose, & Throat: No Symptoms Respiratory: Short Of Breath Cardiac: No Symptoms Abdominal/Gastrointestinal: Other (no stools but does not feel constipated) Musculoskeletal: No Symptoms Skin: No Symptoms Objective Exam General Appearance: no apparent distress Neurologic Exam: alert, cooperative Skin Exam: normal color, warm, dry Respiratory Exam: normal breath sounds, lungs clear, No accessory muscle use, No prolonged expirations, No crackles/rales Cardiovascular Exam: regular rate/rhythm, No murmur, No friction rub, No gallop Gastrointestinal/Abdomen Exam: soft, normal bowel sounds, No tenderness, No distention, No mass Extremity Exam: other (+1 edema to mid shins bilat, no c/c) OBJECTIVE DATA Vital Signs: Vital Signs - 24 hr Temp Pulse Resp BP Pulse Ox 06/10/18 12:00 98.5 F 60 18 168/72 91 L 06/10/18 11:35 95 06/10/18 08:00 98.0 F 61 18 165/73 92 L 06/10/18 04:00 97.9 F 60 19 150/68 90 L 06/10/18 00:00 98.6 F 71 18 160/67 94 L 06/09/18 20:00 97.9 F 61 18 180/77 93 L Oxygen-Last 24 hours O2 Percentage 2 Liters = 28% O2 Percentage 2 Liters = 28% O2 Percentage 2 Liters = 28% O2 Percentage 2 Liters = 28% Pain Assessment - Last Documented Pain Intensity 0 Pain Scale Used [facility] Intake and Output: Intake & Output 06/08/18 06/09/18 06/10/18 06/11/18 06:59 06:59 06:59 06:59 Intake Total 720 480 720 Output Total 800 4400 8620 Balance -80 -4224 -8112 Weight 77.6 kg 77.3 kg 75.8 kg Lab Results: Accuchecks Date 06/10/18 Date 04/10/19 Time 11:30 Time 07:30 Accucheck Value: 158 Accucheck Value: 156 Accucheck Value: 129 Lab Results-Last 24 Hours 06/09/18 Range/Units 18:10 Potassium 3.5 (3.5-5.1) mmol/L Radiology Exams: Radiology Procedures Category Date Time Status CHEST 2 VIEWS (PA AND LAT) Routine Exams 06/09/18 06:00 Completed Multi-Disciplinary Progress Notes: Multi-Disciplinary Progress Notes 06/10/18 13:34 Respiratory Note by Elizabeth Venegas PT'S FAMILY BRINGING IN HOME CPAP FOR USE TONIGHT FOR OVERNIGHT PULSE OXIMETRY STUDY. Initialized on 06/10/18 13:34 - END OF NOTE 06/10/18 09:46 Respiratory Note by Elizabeth Venegas PT'S O2 SAT ON ROOM AIR WHILE AT REST WAS 87%. PT WAS THEN PLACED BACK ON 2LPM NASAL CANNULA. O2 SAT INCREASED TO 93%. NURSE AWARE. Initialized on 06/10/18 09:46 - END OF NOTE Assessment/Plan (1) Acute exacerbation of CHF (congestive heart failure) Current Visit: Yes Status: Acute Assessment & Plan: Continue with current diuretics; Her business and services instructor was able to see her while she was here. Code(s): I50.9 - HEART FAILURE, UNSPECIFIED (2) Essential hypertension Current Visit: No Status: Acute Assessment & Plan: Continue current medication. I added HCTZ and losartan while she was here. Code(s): I10 - ESSENTIAL (PRIMARY) HYPERTENSION (3) Diabetes type 2, controlled Current Visit: Yes Status: Acute Qualifiers: Diabetes mellitus intermission coordinator insulin use: without intermission coordinator use Assessment & Plan: Continue sliding scale insulin as needed. Code(s): E11.9 - TYPE 2 DIABETES MELLITUS WITHOUT COMPLICATIONS (4) Hypothyroidism Current Visit: Yes Status: Acute Code(s): E03.9 - HYPOTHYROIDISM, UNSPECIFIED (5) History of atrial fibrillation Current Visit: Yes Status: Acute Code(s): Z86.79 - PERSONAL HISTORY OF OTHER DISEASES OF THE CIRCULATORY SYSTEM
[2018-06-10] MEDS ORDERED: Zofran 4 MG/2 ML VIAL IV PRN (16:39)
[2018-06-10] MEDS: ZOCOR 20MG PO SCH (21:54)
[2018-06-10] MEDS: Xalatan OP SCH (21:54)
[2018-06-11] MEDS ORDERED: Cozaar 50 MG PO SCH (10:02)
--- NOTE | 2018-06-11 10:03 | PCM.NOTE ---
Date and Time: 06/11/18956 Subjective Assessment: She reports that she has trouble tolerating her cpap at night. At home, she states she falls asleep without it and then when she gets up to use the bathroom , she will put it on and that at that time it refreshes her. She states she wasn 't sure if she was going to be able to tolerate it last night here in the hospital. Key, director technical, told me that the equipment that they used last night to test for hypoxia while she was using her cpap did not read correctly and she does not think it is accurate. The patient tells me if she has to pay anything out of pocket for oxygen when she goes home that she cannot afford this. She vomited last evening. She states her stomach is a little upset but better and she was able to eat half her breakfast. She denies constipation and was able to have a stool yesterday. She denies shortness of breath or chest pain. She reported yesterday that she did not want any more lab draws. She thinks she may be getting a cold and has had some sneezing. - Review of Systems Constitutional: No Symptoms Eyes: No Symptoms Ears, Nose, & Throat: No Symptoms Respiratory: No Symptoms Cardiac: No Symptoms Abdominal/Gastrointestinal: Nausea, Vomiting, No Constipation Genitourinary Symptoms: No Symptoms Musculoskeletal: No Symptoms Skin: No Symptoms Objective Exam General Appearance: no apparent distress, alert Neurologic Exam: alert, cooperative, normal mood/affect Skin Exam: normal color, warm, dry, No rash Respiratory Exam: normal breath sounds, lungs clear, No crackles/rales, No rhonchi, No wheezing Cardiovascular Exam: regular rate/rhythm, normal heart sounds, No murmur, No friction rub, No gallop Gastrointestinal/Abdomen Exam: soft, normal bowel sounds, No tenderness, No distention, No mass, No guarding Extremity Exam: other (+1 edema to mid shins bilat, no c/c) OBJECTIVE DATA Vital Signs: Vital Signs - 24 hr Temp Pulse Resp BP Pulse Ox 06/11/18 08:00 98.6 F 62 20 172/76 95 06/11/18 03:55 97.8 F 61 16 167/72 82 L 06/11/18 03:54 98.6 F 59 L 16 150/64 93 L 06/11/18 00:00 98.6 F 59 L 16 150/64 93 L 06/10/18 20:00 98.4 F 60 17 153/68 92 L 06/10/18 16:00 98.1 F 60 18 178/72 91 L 06/10/18 12:00 98.5 F 60 18 168/72 91 L 06/10/18 11:35 95 Oxygen-Last 24 hours O2 Percentage 2 Liters = 28% O2 Percentage 2 Liters = 28% O2 Percentage 2 Liters = 28% O2 Percentage 2 Liters = 28% O2 Percentage 2 Liters = 28% O2 Percentage 2 Liters = 28% Pain Assessment - Last Documented Pain Intensity 0 Pain Scale Used 0-10 Pain Scale Intake and Output: Intake & Output 06/09/18 06/10/18 06/11/18 06/12/18 06:59 06:59 06:59 06:59 Intake Total 480 720 960 Output Total 4400 3100 1000 400 Balance -3920 -2380 -40 -400 Weight 77.3 kg 75.8 kg 76.4 kg Lab Results: Accuchecks Date 06/11/18 Date 06/10/18 Date 06/10/18 Time 07:30 Time 16:30 Time 11:30 Accucheck Value: 165 Accucheck Value: 193 Accucheck Value: 147 Accucheck Value: 158 Multi-Disciplinary Progress Notes: Multi-Disciplinary Progress Notes 06/10/18 13:34 Respiratory Note by Elizabeth Venegas PT'S FAMILY BRINGING IN HOME CPAP FOR USE TONIGHT FOR OVERNIGHT PULSE OXIMETRY STUDY. Initialized on 06/10/18 13:34 - END OF NOTE Assessment/Plan (1) Acute exacerbation of CHF (congestive heart failure) Current Visit: Yes Status: Acute Assessment & Plan: Continue with furosemide 80 mg daily per her boiler house inspector recommendation. Her lower extremity edema is slowly improving. Her weight is down 0.9 kg from her admission. Code(s): I50.9 - HEART FAILURE, UNSPECIFIED (2) Essential hypertension Current Visit: No Status: Acute Assessment & Plan: Increase losartan from 50 mg to 100mg. Continue HCTZ and nifedipine. Code(s): I10 - ESSENTIAL (PRIMARY) HYPERTENSION (3) Diabetes type 2, controlled Current Visit: Yes Status: Acute Qualifiers: Diabetes mellitus [facility] insulin use: without [facility] use Assessment & Plan: Currently fairly well controlled here in the hospital. Code(s): E11.9 - TYPE 2 DIABETES MELLITUS WITHOUT COMPLICATIONS (4) Hypothyroidism Current Visit: Yes Status: Acute Assessment & Plan: Continue levothyroxine. Code(s): E03.9 - HYPOTHYROIDISM, UNSPECIFIED (5) History of atrial fibrillation Current Visit: Yes Status: Acute Assessment & Plan: Rate controlled, on blood thinner, following up with boiler house inspector. Code(s): Z86.79 - PERSONAL HISTORY OF OTHER DISEASES OF THE CIRCULATORY SYSTEM (6) Chronic respiratory failure with hypoxia Current Visit: Yes Status: Acute
[2018-06-11] MEDS: Cordarone 200 MG PO SCH (10:16)
[2018-06-11] MEDS: Ditropan XL 5 MG PO SCH ×2 (10:16→22:06)
[2018-06-11] MEDS: Protonix 40MG Tablet PO SCH ×2 (10:19→22:06)
[2018-06-11] MEDS: Adalat CC 30 MG TABLET PO SCH (10:19)
[2018-06-11] MEDS: Klor Con 10 MEQ PO SCH ×2 (10:19→22:06)
[2018-06-11] MEDS: SYNTHROID 25 MCG PO SCH (10:19)
[2018-06-11] MEDS: ELIQUIS 2.5 MG TABLET PO SCH ×2 (10:19→22:06)
[2018-06-11] MEDS: LASIX 80 MG PO SCH (10:19)
[2018-06-11] MEDS: Toprol Xl 100 MG PO SCH (10:19)
[2018-06-11] MEDS: hydroDIURIL 25 MG PO SCH (10:19)
[2018-06-11] MEDS: Cozaar 50 MG PO SCH (15:50)
[2018-06-11] MEDS: Xalatan OP SCH (22:06)
[2018-06-11] MEDS: ZOCOR 20MG PO SCH (22:06)
[2018-06-12] MEDS: Klor Con 10 MEQ PO SCH (10:39)
[2018-06-12] MEDS: Adalat CC 30 MG TABLET PO SCH (10:39)
[2018-06-12] MEDS: Ditropan XL 5 MG PO SCH (10:39)
[2018-06-12] MEDS: SYNTHROID 25 MCG PO SCH (10:39)
[2018-06-12] MEDS: LASIX 80 MG PO SCH (10:39)
[2018-06-12] MEDS: ELIQUIS 2.5 MG TABLET PO SCH (10:39)
[2018-06-12] MEDS: hydroDIURIL 25 MG PO SCH (10:39)
[2018-06-12] MEDS: Cordarone 200 MG PO SCH (10:39)
[2018-06-12] MEDS: Protonix 40MG Tablet PO SCH (10:39)
[2018-06-12] MEDS: Toprol Xl 100 MG PO SCH (10:39)
[2018-06-12 11:52] LABS: ANION GAP 12.9 MEQ/L (5-15); Calcium 8.9 mg/dL (8.4-10.2); Creatinine 1 1.63 mg/dL (0.52-1.04); Potassium 3.3 mmol/L (3.5-5.1)
--- NOTE | 2018-06-12 12:17 | PCM.DCORD ---
- Discharge Discharge Date: 06/12/18 Disposition: Home, Self-Care Condition: Fair Prescriptions: New Losartan Potassium 50 mg [Cozaar 50 MG] 100 mg PO DAILY #30 tablet Hydrochlorothiazide 25 mg [hydroDIURIL 25 MG] 25 mg PO DAILY #30 tablet Potassium Chloride 10 Meq Tab* [Klor Con 10 MEQ] 10 meq PO TID #90 tab Furosemide 80 mg [Lasix 80 mg] 80 mg PO DAILY #30 tablet Continue Tolterodine Tartrate [Detrol LA] 4 mg PO BID Levothyroxine Sodium 25 Mcg [Synthroid 25 Mcg] 25 mcg PO DAILY Metoprolol Succinate 50 mg [Toprol Xl 50 MG] 100 mg PO DAILY Apixaban [Eliquis 5 mg Tablet] 5 mg PO BID #30 tablet Atorvastatin Calcium [Lipitor 20MG Tablet] 20 mg PO DAILY Nifedipine Xl 30 mg [Adalat CC 30 MG TABLET] 30 mg PO DAILY Latanoprost [Xalatan] 1 drop OP HS Amiodarone HCl 200 mg [Cordarone 200 MG] 200 mg PO DAILY Discontinued Metformin HCl 500 mg [Glucophage 500 MG] 1,000 mg PO BID Furosemide 20 mg [Lasix 20 mg] 20 mg PO DAILY Instructions: Heart Failure, Adult (DC), Oxygen Therapy, Adult (DC), Low Salt Diet Additional Instructions: Follow up with Dr. Hutchison for renal insufficiency. Do NOT take lisinopril, Cartia XT (diltiazem), or triamterene/ hydrochlorothiazide if you have these at home. Stop taking metformin. If you blood glucose runs high, we will add a different medication at your next appointment. Home oxygen as ordered during the day and also at night with your CPAP. Follow up with: GE LAWRENCE [COURTESY STAFF] - 1 Week VIRY ROJAS [Primary Care Provider] - 06/17/18 1:15 pm SIMON HUTCHISON [CONSULTING PHYSICIAN] - 1 Week
[2018-06-12] MEDS ORDERED: Klor Con 10 MEQ PO ONE (12:21)
[2018-06-12 12:32] VITALS: BP 160/67; PULSE 60; O2SAT 98
--- NOTE | 2018-06-16 09:58 | DS ---
DISCHARGE DIAGNOSES: 1) ACUTE EXACERBATION OF CONGESTIVE HEART FAILURE. 2) ESSENTIAL HYPERTENSION. 3) DIABETES MELLITUS TYPE 2, CONTROLLED. 4) HYPOTHYROIDISM. 5) HISTORY OF ATRIAL FIBRILLATION. 6) HYPOXIA DUE TO CONGESTIVE HEART FAILURE. DISCHARGE PHYSICAL EXAMINATION: VITALS: Temperature current 98.4F, temperature max 98.5F, heart rate 60 to 68, respiratory rate 16 to 19, blood pressure 146 to 175 over 59 to 73, weight 76.6 kg. Oxygen saturation 92 to 93% on 2 liters nasal cannula. GENERAL: The patient is a pleasant talkative lady sitting up in bed in no acute distress. CVS: She has a regular rate and rhythm. No murmurs, gallops or rubs are appreciated. CHEST: Clear to auscultation bilaterally. No crackles or wheezes. ABDOMEN: Soft, nontender, nondistended with normal bowel sounds. EXTREMITIES: No clubbing or cyanosis. She does have +1 edema to her mid shins bilaterally. HOSPITAL COURSE: 1) ACUTE EXACERBATION OF CONGESTIVE HEART FAILURE RESULTING IN HYPOXIA: Her cell builder, Dr. Lopez, saw her over tele-medicine consult and plans to follow up with her. He changed her Furosemide from 20 mg daily to 80 mg daily. Her weight has stayed about the same. Her swelling has improved. She is not as short of breath. The patient declined home health care at this time. She had a home oxygen study and needs 2 liters during the day and 3 liters at night with her CPAP. 2) ESSENTIAL HYPERTENSION: I put her on losartan which I increased to 100 mg during her hospitalization and also started her on hydrochlorothiazide. I continued her home dose of Nifedipine. My outpatient chart said she may have in the past been on lisinopril, Maxzide and Cartia and I have asked to not take any of these if she has these at home. 3) DIABETES MELLITUS TYPE 2: Due to her renal insufficiency I am having her stop the Metformin. If her blood sugars run high we will start a different medication most likely Glipizide. 4) HYPOTHYROIDISM: She is continued on her home dose of levothyroxine. 5) HISTORY OF ATRIAL FIBRILLATION: She was continued on her blood thinner. 6) RENAL INSUFFICIENCY: I have asked for her to see Dr. Hutchison as an outpatient for further evaluation. She has not seen a wiping cloth cutter in the past. DISCHARGE MEDICATIONS: Please see the discharge order. DISPOSITION: She is to follow up with Dr. Lopez within two weeks, myself next week and Dr. Hutchison will ask for him to see her as well.
== END 2018-06-12 15:50 | disposition home or self-care (01) | DRG 292 ==
LOC: ED 10:14 → MED SURG 14:57 → OBSVTOIN 06-08 16:43
PROVIDERS: ADMIT Family Medicine; ATTEND Internal Medicine
DX: I50.9 Heart failure, unspecified (principal); J96.11 Chronic respiratory failure with hypoxia; Z79.899 Other long term (current) drug therapy; I10 Essential (primary) hypertension; J44.9 Chronic obstructive pulmonary disease, unspecified; G47.30 Sleep apnea, unspecified; E11.9 Type 2 diabetes mellitus without complications; E03.9 Hypothyroidism, unspecified; E78.5 Hyperlipidemia, unspecified; I48.91 Unspecified atrial fibrillation; R11.2 Nausea with vomiting, unspecified; M79.89 Other specified soft tissue disorders; Z86.73 Personal history of transient ischemic attack (TIA), and cerebral infarction without residual deficits; Z79.01 Long term (current) use of anticoagulants; Z95.0 Presence of cardiac pacemaker
CPT/HCPCS: 36000; 36415; 71046; 80048; 80053; 82550; 82962; 83036; 83880; 84132; 84484; 85025; 85027; 85610; 85730; 93005; 93041; 93268; 93306; 94640; 94760; 94762; 96374; 99285; G0378; Q3014; J1940; J2405; A9270-GY

== ENCOUNTER 2021-07-09 09:32 | Emergency (ER) | payer MEDICARE ==
--- NOTE | 2021-07-09 09:51 | ERPHSYRPT ---
- History of Present Illness Time Seen by Provider: 07/09/21 09:45 Historian: patient, family Exam Limitations: no limitations Physician History: This is an 86-year-old white female who presents with abdominal pain that is present for 3 days. It is associated with constipation. It is primarily on the right side of her abdomen. Patient denies nausea vomiting diarrhea. She has no complaints of new headache. She has no chest pain. She has no shortness of breath. She has no fevers. Patient states she did have a bout of this in the recent past but it resolved on its own. Patient is a former smoker of cigarettes. She has stage IV renal disease(Dr. Hutchison) and is not on dialysis at this time. She has history of elevated cholesterol and hypertension. She also has history of peripheral neuropathy, TIAs, COPD, sleep apnea, obesity, diabetes, hypothyroidism. She has had no prior abdominal surgeries. Patient was recently placed on [facility]/narcotic pain medicine to treat dental pain secondary to recent procedure. However, she is only taken 1 tablet. Timing/Duration: day(s) Activities at Onset: none Quality: aching, cramping Abdominal Pain Onset Location: RUQ, RLQ Pain Radiation: no radiation Severity of Pain-Max: mild (To moderate) Severity of Pain-Current: mild (To moderate) Modifying Factors: Improves With: nothing Associated Symptoms: other (Constipation), No chest pain, No diaphoresis, No diarrhea, No fever/chills, No loss of appetite, No nausea, No vomiting Previous symptoms: no recent treatment Allergies/Adverse Reactions: adhesive Allergy (Verified 07/09/21 09:59) meperidine HCl [From Demerol] Allergy (Verified 07/09/21 09:59) morphine Allergy (Verified 07/09/21 09:59) Penicillins Allergy (Verified 07/09/21 09:59) Sulfa (Sulfonamide Antibiotics) Allergy (Verified 07/09/21 09:59) Home Medications: Levothyroxine Sodium 25 Mcg [Synthroid 25 Mcg] 75 mcg PO DAILY 08/22/14 [History] Metoprolol Succinate 50 mg [Toprol Xl 50 MG] 100 mg PO DAILY 08/22/14 [History] Tolterodine Tartrate [Detrol LA] 4 mg PO BID 06/22/15 [History] Atorvastatin Calcium [Lipitor 20MG Tablet] 20 mg PO DAILY 10/31/17 [History] Latanoprost [Xalatan] 1 drop OP HS 06/07/18 [History] Latanoprost [Xalatan] 1 ea DAILY 07/09/21 [History] Loratadine 10 mg [Claritin 10 mg] 10 mg PO DAILY 07/09/21 [History] Potassium Chloride 10 Meq Tab* [Klor Con 10 MEQ] 20 meq PO TID 07/09/21 [History] Hx Tetanus, Diphtheria Vaccination/Date Given: Yes Hx Influenza Vaccination/Date Given: Yes Hx Pneumococcal Vaccination/Date Given: Yes Travel Risk - International Travel Have you traveled outside of the country in past 3 weeks: No - Coronavirus Screening Are you exhibiting any of the following symptoms?: No Close contact with a COVID-19 positive Pt in past 14-21 Days: No - Review of Systems Constitutional: No Symptoms Eyes: No Symptoms Ears, Nose, & Throat: No Symptoms Respiratory: No Symptoms Cardiac: No Symptoms Abdominal/Gastrointestinal: Abdominal Pain, Constipation Genitourinary Symptoms: No Symptoms Musculoskeletal: No Symptoms Skin: No Symptoms Neurological: No Symptoms Psychological: No Symptoms Endocrine: No Symptoms Hematologic/Lymphatic: No Symptoms Immunological/Allergic: No Symptoms All Other Systems: Reviewed and Negative - Past Medical History Pertinent Past Medical History: Yes Neurological History: Peripheral Neuropathy, TIA ENT History: Cataracts, Macular Degeneration Cardiac History: High Cholesterol, Hypertension, Other Respiratory History: COPD, Sleep Apnea Endocrine Medical History: Diabetes Type II, Hypothyroidism, Other Musculoskeletal History: Osteoarthritis GI Medical History: Diverticulitis History: Renal Disease, Other Psycho-Social History: No Pertinent History Female Reproductive Disorders: Breast Cancer Other Medical History: L KNEE ARTHROSCOPIC SURGERY, HEART CATH, BREAST CA. Sleep Apnea. TIA. Nodules on thyroid - Past Surgical History Past Surgical History: Yes Neuro Surgical History: No Pertinent History Cardiac: Cardiac Catheterization Respiratory: No Pertinent History Gastrointestinal: No Pertinent History Genitourinary: No Pertinent History Musculoskeletal: Orthopedic Surgery Female Surgical History: Tubal Ligation - Social History Smoking Status: Former smoker How long have you smoked: 20 Exposure to second hand smoke: No Drug Use: none Patient Lives Alone: Yes (here with a friend) - Nursing Vital Signs Nursing Vital Signs: Initial Vital Signs Temperature 97.2 F 07/09/21 09:38 Pulse Rate 96 H 07/09/21 09:38 Respiratory Rate 18 07/09/21 09:38 Blood Pressure 172/83 07/09/21 09:38 O2 Sat by Pulse Oximetry 93 L 07/09/21 09:38 Pain Scale Pain Intensity 2 - Physical Exam General Appearance: no apparent distress, alert, anxiety, obese Eye Exam: PERRL/EOMI, eyes nml inspection Ears, Nose, Throat Exam: normal ENT inspection, moist mucous membranes Neck Exam: normal inspection, non-tender, supple, full range of motion Respiratory Exam: normal breath sounds, lungs clear, airway intact, No chest tenderness, No respiratory distress Cardiovascular Exam: regular rate/rhythm, normal heart sounds, normal peripheral pulses Gastrointestinal/Abdomen Exam: soft, normal bowel sounds, tenderness (right side), guarding Pelvic Exam: not done Rectal Exam: not done Back Exam: normal inspection, normal range of motion, No CVA tenderness Extremity Exam: normal inspection, normal range of motion, pelvis stable Neurologic Exam: alert, oriented x 3, cooperative, fire production operator II-XII nml as tested, normal mood/affect, nml cerebellar function, nml station & gait, sensation nml Skin Exam: normal color, warm, dry Lymphatic Exam: No adenopathy SpO2 Interpretation: normal O2 Delivery: Room Air - Course Nursing assessment & vital signs reviewed: Yes Ordered Tests: Active Orders 24 hr Category Date Time Status IV Insertion STAT Care 07/09/21 10:06 Active ABDOMEN AND PELVIS W/0 CONTRAS [CT] Stat Exams 07/09/21 10:31 Taken AMYLASE Stat Lab 07/09/21 09:45 Completed CBC W DIFF Stat Lab 07/09/21 09:45 Completed CMP Stat Lab 07/09/21 09:45 Completed CULTURE,URINE Stat Lab 07/09/21 10:15 Received LIPASE Stat Lab 07/09/21 09:45 Completed Lactic Acid Stat Lab 07/09/21 10:32 Completed UA W/RFX CULTURE Stat Lab 07/09/21 10:15 Completed Medication Summary Discontinued Medications Generic Name Dose Route Start Last Admin Trade Name Freq PRN Reason Stop Dose Admin Sodium Chloride 500 mls @ 500 mls/hr 07/09/21 10:14 07/09/21 10:38 Sodium Chloride 0.9% 500 Ml IV 07/09/21 11:13 500 mls/hr .Q1H ONE Administration Sodium Chloride Confirm 07/09/21 10:37 Sodium Chloride 0.9% 500 Ml Administered 07/09/21 10:38 Dose 500 mls @ ud IV .STK-MED ONE Lab/Rad Data: Laboratory Result Diagrams 07/09/21 09:45 07/09/21 09:45 Laboratory Results 07/09/21 07/09/21 07/09/21 Range/Units 10:32 10:15 09:45 WBC (4.0-10.5) K/mm3 RBC (4.1-5.4) M/mm3 Hgb (12.0-16.0) gm/dl Hct (35-47) % MCV (78-100) fl MCH (26-32) pg MCHC (32-36) g/dl RDW (11.5-14.0) % Plt Count (150-450) K/mm3 MPV (7.5-11.0) fl Gran % (36.0-66.0) % Eos # (Auto) (0-0.5) Absolute Lymphs (auto) (1.0-4.6) Absolute Monos (auto) (0.0-1.3) Lymphocytes % (24.0-44.0) % Monocytes % (0.0-12.0) % Eosinophils % (0.00-5.0) % Basophils % (0.0-0.4) % Absolute Granulocytes (1.4-6.9) Basophils # (0-0.4) Sodium 136 L (137-145) mmol/L Potassium 3.4 L (3.5-5.1) mmol/L Chloride 100 (98-107) mmol/L Carbon Dioxide 23 (22-30) mmol/L Anion Gap 16.2 H (5-15) MEQ/L BUN 20 H (7-17) mg/dL Creatinine 1.15 H (0.52-1.04) mg/dL Estimated GFR 47.6 ML/MIN Glucose 171 H (74-106) mg/dL Lactic Acid 1.3 (0.4-2.0) Calcium 9.1 (8.4-10.2) mg/dL Total Bilirubin 2.30 H (0.2-1.3) mg/dL AST 26 (14-36) U/L ALT 12 (0-35) U/L Alkaline Phosphatase 96 (38-126) U/L Serum Total Protein 7.8 (6.3-8.2) g/dL Albumin 3.9 (3.5-5.0) g/dL Amylase 86 (30-110) U/L Lipase 68 (23-300) U/L Urinalys Dipstick Clnc MAIN LAB Urine Color YELLOW (YELLOW) Urine Appearance CLEAR (CLEAR) Urine pH 7.0 (5-6) Ur Specific [employer] [place] 1.020 (1.005-1.025) POC Urine Protein Conf 100 (Negative) Urine Ketones NEGATIVE (NEGATIVE) Urine Nitrite NEGATIVE (NEGATIVE) Urine Bilirubin NEGATIVE (NEGATIVE) Urine Urobilinogen 0.2 (0-1) mg/dL Urine Leukocytes NEGATIVE (NEGATIVE) Urine WBC (Auto) 26-50 (0-5) /HPF Urine RBC (Auto) 6-10 (0-2) /HPF U Hyaline Cast (Auto) 3-5 (0-2) /LPF U Epithel Cells (Auto) RARE (FEW) /HPF Urine Bacteria (Auto) FEW (NEGATIVE) /HPF Urine RBC SMALL (0-5) Александр/ul Ur Culture Indicated? YES Urine Glucose NEGATIVE (NEGATIVE) mg/dL 07/09/21 Range/Units 09:45 WBC 14.3 H (4.0-10.5) K/mm3 RBC 4.60 (4.1-5.4) M/mm3 Hgb 13.1 (12.0-16.0) gm/dl Hct 41.4 (35-47) % MCV 90.0 (78-100) fl MCH 28.5 (26-32) pg MCHC 31.6 L (32-36) g/dl RDW 15.4 H (11.5-14.0) % Plt Count 243 (150-450) K/mm3 MPV 10.9 (7.5-11.0) fl Gran % 82.9 H (36.0-66.0) % Eos # (Auto) 0.08 (0-0.5) Absolute Lymphs (auto) 1.38 (1.0-4.6) Absolute Monos (auto) 0.90 (0.0-1.3) Lymphocytes % 9.7 L (24.0-44.0) % Monocytes % 6.3 (0.0-12.0) % Eosinophils % 0.6 (0.00-5.0) % Basophils % 0.5 (0.0-0.4) % Absolute Granulocytes 11.87 H (1.4-6.9) Basophils # 0.07 (0-0.4) Sodium (137-145) mmol/L Potassium (3.5-5.1) mmol/L Chloride (98-107) mmol/L Carbon Dioxide (22-30) mmol/L Anion Gap (5-15) MEQ/L BUN (7-17) mg/dL Creatinine (0.52-1.04) mg/dL Estimated GFR ML/MIN Glucose (74-106) mg/dL Lactic Acid (0.4-2.0) Calcium (8.4-10.2) mg/dL Total Bilirubin (0.2-1.3) mg/dL AST (14-36) U/L ALT (0-35) U/L Alkaline Phosphatase (38-126) U/L Serum Total Protein (6.3-8.2) g/dL Albumin (3.5-5.0) g/dL Amylase (30-110) U/L Lipase (23-300) U/L Urinalys Dipstick Clnc Urine Color (YELLOW) Urine Appearance (CLEAR) Urine pH (5-6) Ur Specific [employer] (1.005-1.025) POC Urine Protein Conf (Negative) Urine Ketones (NEGATIVE) Urine Nitrite (NEGATIVE) Urine Bilirubin (NEGATIVE) Urine Urobilinogen (0-1) mg/dL Urine Leukocytes (NEGATIVE) Urine WBC (Auto) (0-5) /HPF Urine RBC (Auto) (0-2) /HPF U Hyaline Cast (Auto) (0-2) /LPF U Epithel Cells (Auto) (FEW) /HPF Urine Bacteria (Auto) (NEGATIVE) /HPF Urine RBC (0-5) Александр/ul Ur Culture Indicated? Urine Glucose (NEGATIVE) mg/dL - Progress Progress: unchanged Progress Note: 07/09/21 12:11 CAT scan of the abdomen pelvis without contrast shows a significant stool in the cecum, ascending colon and transverse colon. There is question of some inflammation around the cecum with mild but no abscess present. Counseled pt/family regarding: diagnosis, need for follow-up, rad results - Departure Departure Disposition: Home Clinical Impression: Constipation, Typhlitis Condition: Stable Critical Care Time: No Referrals: ERIC AGUIAR DO [Primary Care Provider] - Follow up/PCP as directed Additional Instructions: Drink plenty of clear liquids. Do not advance diet until you are taking clear liquids and well. Take your medication as prescribed. Follow-up with your primary care physician for further management. Avoid narcotic use. Increase your activity. Prescriptions: Metronidazole 500 mg [Flagyl 500 MG] 500 mg PO TID #21 tablet
[2021-07-09 10:29] LABS: Bacteria FEW /HPF (NEGATIVE); Epithelial Cells RARE /HPF (FEW); WBC 26-50 /HPF (0-5)
[2021-07-09 10:30] LABS: Appearance CLEAR (CLEAR); Bilirubin NEGATIVE (NEGATIVE); Glucose NEGATIVE (NEGATIVE); Ketones NEGATIVE (NEGATIVE)
[2021-07-09 10:31] LABS: Dipstick done @ ? MAIN LAB; Nitrite NEGATIVE (NEGATIVE); Protein,Urine Dip 100 (Negative); RBC SMALL Ery/ul (0-5); Urobilinogen 0.2 mg/dL (0-1)
[2021-07-09 10:32] LABS: Urine Cultured Indicated? YES
[2021-07-09] MEDS ORDERED: Sodium Chloride 0.9% 500 ML 500 ML IV ONE (10:37)
[2021-07-09] MEDS: Sodium Chloride 0.9% 500 ML 500 ML IV ONE (10:38)
[2021-07-09 10:39] LABS: Absolute Neutrophil Ct (ANC) 11.87 (1.4-6.9); Basophil (Absolute #) 0.07 (0-0.4); Eosinophil % 0.6 % (0.00-5.0); Eosinophil (Absolute #) 0.08 (0-0.5); Hematocrit 41.4 % (35-47); Hemoglobin 13.1 gm/dl (12.0-16.0); Lymphocyte (Absolute #) 1.38 (1.0-4.6); Lymphocytes % 9.7 % (24.0-44.0); Mean Corpuscular Hemoglobin 28.5 pg (26-32); Mean Corpuscular Hgb Concent. 31.6 g/dl (32-36); Mean Platelet Volume 10.9 fl (7.5-11.0); Monocytes % 6.3 % (0.0-12.0); Neutrophil % 82.9 % (36.0-66.0); Platelet Count 243 K/mm3 (150-450); Red Cell Distribution Width 15.4 % (11.5-14.0); White Blood Count 14.3 K/mm3 (4.0-10.5)
[2021-07-09 10:43] LABS: ALBUMIN 3.9 g/dL (3.5-5.0); ANION GAP 16.2 MEQ/L (5-15); BILIRUBIN,TOTAL 2.3 mg/dL (0.2-1.3); Calcium 9.1 mg/dL (8.4-10.2); Creatinine 1 1.15 mg/dL (0.52-1.04); EST GLOMERULAR FILTRATION RATE 47.6 ML/MIN; Potassium 3.4 mmol/L (3.5-5.1); Total Protein 7.8 g/dL (6.3-8.2)
--- NOTE | 2021-07-09 12:11 | XRAY ---
Exam: CT abdomen and pelvis without IV contrast from 07/09/2021. CTDI: 13.21 mGy Comparison: [None.] Indication: Right-sided upper abdominal pain for 3 days; history of prior pacemaker and tubal surgeries. Findings: Non-IV contrast axial images were obtained through the abdomen and pelvis. Reconstructed coronal and sagittal images were created and reviewed. No oral contrast was given. The CT hazardous materials waste technician image reveals pacemaker wires overlying the right atrium and right ventricle from the pacemaker. There is minimal elevation of the left hemidiaphragm with respect to the right hemidiaphragm. At least moderate osteoarthritic changes are seen within the lower thoracolumbar spine. There is moderate narrowing of the left hip joint space indicating osteoarthritis. The heart size appears borderline enlarged. No infiltrates or pleural fluid is seen at the lung bases. On axial image #10, there is a 4 mm oval-shaped soft tissue nodule at the lateral right lung base just anterior to the midaxillary line. Fleischner Society guidelines should be followed. In this case, this would include no follow-up if the patient is low risk for developing cancer, or alternatively, an optional follow-up CT in 12 months if the patient is at high risk. Minimal chronic appearing pleural scarring is seen on the left. The liver reveals an unremarkable size and a few scattered calcified granulomas. No obvious liver mass is seen. The gallbladder reveals at least several posterior layering calcified gallstones consistent with cholelithiasis. No gallbladder wall thickening or biliary duct distention is seen. The spleen measures 12.5 cm in greatest cross-sectional diameter which is only borderline enlarged. Multiple calcified splenic granulomas are seen. No focal splenic mass is seen. The pancreas reveals an apparent 1.2 cm in diameter cyst measuring -5.1 Hounsfield units arising off the anterior margin of the tail of the pancreas on axial image #27. No other significant abnormality of the pancreas is seen. The adrenal glands appear grossly unremarkable. The kidneys reveal extensive renal artery vascular calcification. I suspect some small bilateral renal cysts. Detection of small solid renal lesions is limited on a non-IV contrast study. The largest apparent renal cyst measures 1.7 cm in diameter on the right and about 1.5 cm in diameter on the left. A I see no hydronephrosis. A small renal calculus within the posterior aspect of the lower pole of the right kidney on axial image #44 is difficult to exclude. The extensive vascular calcification within the kidneys makes assessment in this regard more difficult. Extensive arteriosclerotic vascular calcification is seen within the abdominal aorta, mesenteric vessels, and renal arteries. No abdominal aortic aneurysm is seen. There is no free intraperitoneal air. No ventral abdominal wall hernia is seen. Abundant stool is seen scattered throughout the cecum, ascending colon, and transverse colon suggesting some constipation. I see no evidence of bowel obstruction. The appendix is not definitely seen. I cannot exclude some mild bowel wall thickening within the inferior aspect of the cecum. Consider mild or early typhlitis. The uterus is anteflexed and tilted toward the left. There appears to be a partially calcified uterine fibroid measuring about 1.6 cm in diameter along the upper right margin of the uterus. Extensive vascular calcification is again seen. No free intraperitoneal fluid or abnormal pelvic lymphadenopathy is seen. The urinary bladder is only mildly distended. There is a small bubble of air within the anterior aspect of the urinary bladder which is likely due to recent urinary bladder catheterization. Correlate clinically in this regard. No other pelvic mass is seen. The skeleton reveals no fracture or aggressive bone lesion. Advanced osteoarthritis and degenerative disc disease is seen throughout the visualized lower thoracolumbar spine, most severe at the lower 3 interspaces levels. I also note some moderate asymmetric narrowing of the left hip joint space suggesting osteoarthritis in this side. Impression: 1. There is moderate cholelithiasis. No definite gallbladder wall thickening or biliary duct distention is seen. 2. I note some mild wall thickening of the inferior aspect of the cecum. This is relatively nonspecific, but I cannot exclude early or mild typhlitis. No abscess is seen. 3. 4 mm soft tissue nodule at lateral right lung base. See above. 4. Old healed granulomatous disease, extensive arteriosclerotic vascular calcification, significant degenerative changes within the lower thoracolumbar spine, and moderate osteoarthritis of the left hip are seen. 5. The kidneys reveal multiple bilateral small, low-attenuation nodules which may represent cysts. A small solid renal lesion cannot be entirely excluded based on this non-IV contrast study. I also note a probable nonobstructing stone within the posterior aspect of the lower pole of the right kidney on axial image #44. No hydronephrosis is seen. 6. There is only minimal distention of the urinary bladder. A tiny amount of intraluminal air is likely due to recent catheterization. Correlate clinically in this regard. 7. Abundant stool is seen within the cecum, ascending colon, and transverse colon consistent with constipation. I see no evidence of bowel obstruction or free air/free fluid. 8. Old healed granulomatous disease. 9. Small partially calcified uterine fibroid is noted along the right margin of the uterus. 10. Small apparent cyst arising from the anterior margin of the pancreatic tail on axial image #27.
[2021-07-09] MEDS ORDERED: LOPRESSOR 5 MG/5 ML INJECTION IV ONE (12:37)
[2021-07-09] MEDS ORDERED: CITROMA 296 ML ONE (12:37)
[2021-07-09] MEDS: LOPRESSOR 5 MG/5 ML INJECTION IV ONE (12:38)
[2021-07-09] MEDS: CITROMA 296 ML PO ONE (12:38)
[2021-07-09 13:55] VITALS: BP 153/96; PULSE 102; O2SAT 98
== END 2021-07-09 13:56 | disposition home or self-care (01) ==
LOC: ED 09:32
DX: K59.00 Constipation, unspecified (principal); K37 Unspecified appendicitis; N39.0 Urinary tract infection, site not specified; R10.11 Right upper quadrant pain; R10.31 Right lower quadrant pain; I12.9 Hypertensive chronic kidney disease with stage 1 through stage 4 chronic kidney disease, or unspecified chronic kidney disease; N18.4 Chronic kidney disease, stage 4 (severe); E78.5 Hyperlipidemia, unspecified; E11.42 Type 2 diabetes mellitus with diabetic polyneuropathy; Z79.891 Long term (current) use of opiate analgesic; Z79.899 Other long term (current) drug therapy
CPT/HCPCS: 36000; 36415; 74176; 80053; 81015; 82150; 83605; 83690; 85025; 87086; 96374; 99284; A9270-GY